=== PATIENT | female | born 1945 | race Caucasian/White ===

== ENCOUNTER 2017-05-15 19:36 | Inpatient (IN) | payer MEDICARE, OTHER ==
--- NOTE | 2017-05-15 20:27 | EDM.PDOC ---
ED HPI GENERAL MEDICAL PROBLEM - General Chief Complaint: Back Pain or Injury Stated Complaint: BACK PAIN Time Seen by Provider: 05/15/17 20:27 Source of Information: Reports: Patient History Limitations: Reports: No Limitations - History of Present Illness INITIAL COMMENTS - FREE TEXT/NARRATIVE: pt arrived with severe pain in the lower back and particularly over the left buttock area. Onset: Gradual Duration: Day(s):, Other (She has had days when she is not moving and she is not eating. ) Location: Reports: Back Associated Symptoms: Reports: Other (pt states she hs become quite dispontant-- She really does not care about anything. 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(s) Left Lower Back Pain Score (Numeric/FACES): 6 - Related Data Allergies Allergy/AdvReac Type Severity Reaction Status Date / Time Beta-Adrenergic Agents Allergy Depression Verified 06/27/13 08:20 corn Allergy Other Verified 05/15/17 20:02 gluten Allergy Other Verified 05/15/17 20:02 prednisone Allergy Cannot Verified 10/01/13 13:57 Remember Sulfa (Sulfonamide Allergy Cannot Verified 06/26/13 07:08 Antibiotics) Remember tomato Allergy Vomiting Verified 05/15/17 20:02 Home Meds: Home Meds Digoxin 0.25 mg PO DAILY 06/26/13 [History] Diltiazem [Diltiazem SR] 120 mg PO DAILY 06/26/13 [History] Furosemide [Lasix] 20 mg PO DAILY 06/26/13 [History] Levothyroxine 100 mcg PO DAILY 06/26/13 [History] Liothyronine [Cytomel] 25 mcg PO DAILY 06/26/13 [History] Potassium 1 tab PO BID 10/01/13 [History] Aspirin [Adult Low Dose Aspirin EC] 81 mg PO BID 05/15/17 [History] Past Medical History HEENT History: Reports: Glaucoma Cardiovascular History: Reports: Afib Musculoskeletal History: Reports: Arthritis, Back Pain, Chronic, Fracture - Infectious Disease History Infectious Disease History: Reports: Chicken Pox, Measles - Past Surgical History Cardiovascular Surgical History: Reports: Other (See Below) Other Cardiovascular Surgeries/Procedures: ablasion Respiratory Surgical History: Reports: Thoracentesis GI Surgical History: Reports: Appendectomy Musculoskeletal Surgical History: Reports: None Social & Family History - Tobacco Use Smoking Status *Q: Never Smoker Second Hand Smoke Exposure: Yes - Caffeine Use Caffeine Use: Reports: Coffee, Tea - Alcohol Use Days Per Week of Alcohol Use: 3 Number of Drinks Per Day: 1 Total Drinks Per Week: 3 - Recreational Drug Use Recreational Drug Use: No ED ROS GENERAL - Review of Systems Review Of Systems: See Below Constitutional: Reports: No Symptoms HEENT: Reports: No Symptoms Respiratory: Reports: No Symptoms Cardiovascular: Reports: No Symptoms Endocrine: Reports: No Symptoms GI/Abdominal: Reports: No Symptoms : Reports: No Symptoms Musculoskeletal: Reports: Other (P has severe low back pain and this extends down over the left buttock) Skin: Reports: No Symptoms Neurological: Reports: No Symptoms Psychiatric: Reports: Agitation, Anxiety ED EXAM,LOWER BACK PAIN/INJURY - Physical Exam Exam: See Below Text/Narrative:: pt arrived with severe low back pain particularly over the left buttock area. She has been in so much pain that she is not taking care of herself. Exam Limited By: No Limitations General Appearance: Alert, Anxious, Severe Distress, Other ( She was given fentyl 100mg iv. ) Ears: Normal TMs Nose: Normal Inspection Throat/Mouth: Normal Inspection Head: Atraumatic Neck: Normal Inspection Respiratory/Chest: No Respiratory Distress Cardiovascular: Irregularly Irregular, Other (pt has had an ablation and an attempt was made to convert her but this was not successful. ) GI/Abdominal: Soft, Non-Tender Back Exam: Paraspinal Tenderness, Vertebral Tenderness, Other ( Pt is very tender over the left buttock. ) Extremities: Normal Inspection Neurological: Alert Course - Vital Signs Last Recorded V/S: Last Vital Signs Temp 37.6 C 05/15/17 22:43 Pulse 94 05/15/17 21:48 Resp 17 05/15/17 22:43 BP 139/95 H 05/15/17 22:43 Pulse Ox 93 L 05/15/17 22:43 - Orders/Labs/Meds Orders: Active Orders 24 hr Category Date Time Status Lumbar Spine Min 4V [CR] Stat Exams 05/15/17 20:24 Taken CULTURE URINE [RM] Stat Lab 05/15/17 22:00 Received Sodium Chloride 0.9% [Normal Saline] 1,000 ml Med 05/15/17 21:45 Active IV ASDIRECTED Medication Orders Sodium Chloride (Normal Saline) 1,000 mls @ 999 mls/hr IV ASDIRECTED KRISTINE Last Admin: 05/15/17 22:01 Dose: 999 mls/hr Labs: Laboratory Tests 05/15/17 05/15/17 05/15/17 Range/Units 20:28 20:34 20:34 WBC 9.6 (4.5-11.0) K/uL RBC 4.00 (3.30-5.50) M/uL Hgb 12.5 (12.0-15.0) g/dL Hct 38.2 (36.0-48.0) % MCV 96 (80-98) fL MCH 31 (27-31) pg MCHC 33 (32-36) % Plt Count 173 (150-400) K/uL Neut % (Auto) 75 H (36-66) % Lymph % (Auto) 11 L (24-44) % [place] % (Auto) 14 H (2-6) % Eos % (Auto) 0 L (2-4) % Baso % (Auto) 0 (0-1) % ESR 47 H (0-25) mm/hr Sodium 138 L (140-148) mmol/L Potassium 3.1 L (3.6-5.2) mmol/L Chloride 100 (100-108) mmol/L Carbon Dioxide 26 (21-32) mmol/L Anion Gap 15.1 H (5.0-14.0) mmol/L BUN 15 (7-18) mg/dL Creatinine 0.5 L (0.6-1.0) mg/dL Est Cr Clr Drug Dosing 82.89 mL/min Estimated GFR (MDRD) > 60 (>60) Glucose 117 H (74-106) mg/dL Calcium 8.9 (8.5-10.1) mg/dL Total Bilirubin 1.4 H (0.2-1.0) mg/dL AST 31 (15-37) U/L ALT 53 (12-78) U/L Alkaline Phosphatase 97 (46-116) U/L Total Protein 7.3 (6.4-8.2) g/dL Albumin 3.3 L (3.4-5.0) g/dL Globulin 4.0 H (2.3-3.5) g/dL Albumin/Globulin Ratio 0.8 L (1.2-2.2) TSH, Ultra Sensitive 3.448 (0.358-3.740) uIU/mL Urine Color Urine Appearance Urine pH (4.5-8.0) Ur Specific [place] (1.008-1.030) Urine Protein (NEGATIVE) mg/dL Urine Glucose (UA) (NEGATIVE) mg/dL Urine Ketones (NEGATIVE) mg/dL Urine Occult Blood (NEGATIVE) Urine Nitrite (NEGATIVE) Urine Bilirubin (NEGATIVE) Urine Urobilinogen (NORMAL) mg/dL Ur Leukocyte Esterase (NEGATIVE) Urine RBC (0-5) Urine WBC (0-5) Ur Epithelial Cells Amorphous Sediment Urine Bacteria Urine Mucus Urine Other 05/15/17 Range/Units 21:33 WBC (4.5-11.0) K/uL RBC (3.30-5.50) M/uL Hgb (12.0-15.0) g/dL Hct (36.0-48.0) % MCV (80-98) fL MCH (27-31) pg MCHC (32-36) % Plt Count (150-400) K/uL Neut % (Auto) (36-66) % Lymph % (Auto) (24-44) % [place] % (Auto) (2-6) % Eos % (Auto) (2-4) % Baso % (Auto) (0-1) % ESR (0-25) mm/hr Sodium (140-148) mmol/L Potassium (3.6-5.2) mmol/L Chloride (100-108) mmol/L Carbon Dioxide (21-32) mmol/L Anion Gap (5.0-14.0) mmol/L BUN (7-18) mg/dL Creatinine (0.6-1.0) mg/dL Est Cr Clr Drug Dosing mL/min Estimated GFR (MDRD) (>60) Glucose (74-106) mg/dL Calcium (8.5-10.1) mg/dL Total Bilirubin (0.2-1.0) mg/dL AST (15-37) U/L ALT (12-78) U/L Alkaline Phosphatase (46-116) U/L Total Protein (6.4-8.2) g/dL Albumin (3.4-5.0) g/dL Globulin (2.3-3.5) g/dL Albumin/Globulin Ratio (1.2-2.2) TSH, Ultra Sensitive (0.358-3.740) uIU/mL Urine Color Urine Appearance Cloudy Urine pH 5.0 (4.5-8.0) Ur Specific [place] 1.025 (1.008-1.030) Urine Protein 30 H (NEGATIVE) mg/dL Urine Glucose (UA) Normal (NEGATIVE) mg/dL Urine Ketones 50 H (NEGATIVE) mg/dL Urine Occult Blood Negative (NEGATIVE) Urine Nitrite Negative (NEGATIVE) Urine Bilirubin Small (NEGATIVE) Urine Urobilinogen 4 (NORMAL) mg/dL Ur Leukocyte Esterase Negative (NEGATIVE) Urine RBC 0-5 (0-5) Urine WBC 10-20 H (0-5) Ur Epithelial Cells Moderate Amorphous Sediment Few Urine Bacteria Not seen Urine Mucus Many Urine Other Meds: Medications Generic Name Dose Route Start Last Admin Trade Name Freq PRN Reason Stop Dose Admin Sodium Chloride 1,000 mls @ 999 mls/hr 05/15/17 21:45 05/15/17 22:01 Normal Saline IV 999 mls/hr ASDIRECTED KRISTINE Administration Discontinued Medications Generic Name Dose Route Start Last Admin Trade Name Freq PRN Reason Stop Dose Admin Potassium Chloride 20 meq 05/15/17 21:44 05/15/17 22:01 Klor-Con M20 PO 05/15/17 21:45 20 meq ONETIME ONE Administration - Re-Assessments/Exams Free Text/Narrative Re-Assessment/Exam: 05/15/17 22:58 lumbar spine xrays were neg for fracture but she did show degenerative disc disease. her sed rate is greater than 40. Her k was 3.1. Departure - Departure Time of Disposition: 23:00 Disposition: Admitted As Inpatient 65 Condition: Fair Clinical Impression: Dehydration, Hypokalemia, Lumbar disc disease with radiculopathy, UTI (urinary tract infection), Depression - Discharge Information Referrals: PCP,None [Primary Care Provider] - Forms: ED Department Discharge Care Plan Goals: admit to Dr ahmadi. - My Orders Last 24 Hours: My Active Orders 05/15/17 20:24 Lumbar Spine Min 4V [CR] Stat 05/15/17 21:45 Sodium Chloride 0.9% [Normal Saline] 1,000 ml IV ASDIRECTED 05/15/17 22:00 CULTURE URINE [RM] Stat - Assessment/Plan Last 24 Hours: My Active Orders 05/15/17 20:24 Lumbar Spine Min 4V [CR] Stat 05/15/17 21:45 Sodium Chloride 0.9% [Normal Saline] 1,000 ml IV ASDIRECTED 05/15/17 22:00 CULTURE URINE [RM] Stat
[2017-05-15] MEDS ORDERED: Potassium Chloride 20 MEQ Tab.ER PO ONE (21:44)
[2017-05-15] MEDS ORDERED: Sodium Chloride 0.9% 1,000 ML IV SCH (21:45)
--- NOTE | 2017-05-16 00:41 | PCM.HP ---
H&P History of Present Illness - General Date of Service: 05/16/17 Admit Problem/Dx: Admission Diagnosis/Problem Admission Diagnosis/Problem Back pain Source of Information: Patient, Provider, RN Notes Reviewed History Limitations: Reports: No Limitations - History of Present Illness Initial Comments - Free Text/Narative: Ms. Conteh is a 72-year-old woman who is admitted to observation status through the emergency department for further management and evaluation of lower back pain. She has a history of chronic low back pain, now over the past 3 days pain has been significantly worse and she notes pain radiating into both lower extremities with standing. Has a persistent pain and difficulty with ambulation she presented to the emergency department for further evaluation. Laboratory studies are unremarkable and there is no evidence of underlying infection. She is neurologically intact and otherwise relatively healthy. Left Lower Back Pain Score (Numeric/FACES): 6 - Related Data Allergies/Adverse Reactions: Allergies Allergy/AdvReac Type Severity Reaction Status Date / Time Beta-Adrenergic Agents Allergy Depression Verified 06/27/13 08:20 corn Allergy Other Verified 05/15/17 20:02 gluten Allergy Other Verified 05/15/17 20:02 prednisone Allergy Cannot Verified 10/01/13 13:57 Remember Sulfa (Sulfonamide Allergy Cannot Verified 06/26/13 07:08 Antibiotics) Remember tomato Allergy Vomiting Verified 05/15/17 20:02 Home Medications: Home Meds Digoxin 0.25 mg PO DAILY 06/26/13 [History] Diltiazem [Diltiazem SR] 120 mg PO DAILY 06/26/13 [History] Furosemide [Lasix] 20 mg PO DAILY 06/26/13 [History] Levothyroxine 100 mcg PO DAILY 06/26/13 [History] Liothyronine [Cytomel] 25 mcg PO DAILY 06/26/13 [History] Potassium 1 tab PO BID 10/01/13 [History] Aspirin [Adult Low Dose Aspirin EC] 81 mg PO BID 05/15/17 [History] Past Medical History HEENT History: Reports: Glaucoma Cardiovascular History: Reports: Afib Musculoskeletal History: Reports: Arthritis, Back Pain, Chronic, Fracture - Infectious Disease History Infectious Disease History: Reports: Chicken Pox, Measles - Past Surgical History Cardiovascular Surgical History: Reports: Other (See Below) Other Cardiovascular Surgeries/Procedures: ablasion Respiratory Surgical History: Reports: Thoracentesis GI Surgical History: Reports: Appendectomy Musculoskeletal Surgical History: Reports: None Social & Family History - Tobacco Use Smoking Status *Q: Never Smoker Second Hand Smoke Exposure: Yes - Caffeine Use Caffeine Use: Reports: Coffee, Tea - Alcohol Use Days Per Week of Alcohol Use: 3 Number of Drinks Per Day: 1 Total Drinks Per Week: 3 - Recreational Drug Use Recreational Drug Use: No H&P Review of Systems - Review of Systems: Review Of Systems: See Below General: Reports: Weakness, Decreased Appetite. Denies: Fever, Chills, Diaphoresis HEENT: Reports: No Symptoms Pulmonary: Reports: No Symptoms Cardiovascular: Reports: No Symptoms Gastrointestinal: Reports: No Symptoms Genitourinary: Reports: No Symptoms Musculoskeletal: Reports: Back Pain, Leg Pain Skin: Reports: No Symptoms Psychiatric: Reports: No Symptoms Neurological: Reports: No Symptoms Hematologic/Lymphatic: Reports: No Symptoms Immunologic: Reports: No Symptoms Exam - Exam Exam: See Below - Vital Signs Vital Signs: Last Vital Signs Temp 99.7 F 05/15/17 22:43 Pulse 94 05/15/17 21:48 Resp 17 05/15/17 22:43 BP 139/95 H 05/15/17 22:43 Pulse Ox 93 L 05/15/17 22:43 Weight: 250 lb - Exam Quality Assessment: Supplemental Oxygen, DVT Prophylaxis General: Alert, Oriented, Cooperative, Moderate Distress HEENT: Conjunctiva Clear, Hearing Intact, Normal Nasal Septum, Posterior Pharynx Clear, Pupils Equal. No: Mucosa Moist & [place] Neck: Supple, Trachea Midline, +2 Carotid Pulse wo Bruit Lungs: Clear to Auscultation, Normal Respiratory Effort Cardiovascular: Regular Rate, Normal S1, Normal S2, Irregular Rhythm. No: Bradycardia, Tachycardia, Systolic Murmur, Diastolic Murmur GI/Abdominal Exam: Normal Bowel Sounds, Soft, Non-Tender, No Distention Back Exam: Normal Inspection, Paraspinal Tenderness, Vertebral Tenderness Extremities: Non-Tender, No Pedal Edema Skin: Warm, Dry, Intact Neurological: Cranial Nerves Intact, Strength Equal Bilateral, Normal Speech, Normal Tone, Sensation Intact. No: Focal Deficit Neuro Extensive - Mental Status: Alert, Oriented x3, Normal Mood/Affect, Normal Cognition, Memory Intact - Patient Data Lab Results Last 24 hrs: Laboratory Results - last 24 hr 05/15/17 05/15/17 05/15/17 Range/Units 20:28 20:34 20:34 WBC 9.6 (4.5-11.0) K/uL RBC 4.00 (3.30-5.50) M/uL Hgb 12.5 (12.0-15.0) g/dL Hct 38.2 (36.0-48.0) % MCV 96 (80-98) fL MCH 31 (27-31) pg MCHC 33 (32-36) % Plt Count 173 (150-400) K/uL Neut % (Auto) 75 H (36-66) % Lymph % (Auto) 11 L (24-44) % [place] % (Auto) 14 H (2-6) % Eos % (Auto) 0 L (2-4) % Baso % (Auto) 0 (0-1) % ESR 47 H (0-25) mm/hr Sodium 138 L (140-148) mmol/L Potassium 3.1 L (3.6-5.2) mmol/L Chloride 100 (100-108) mmol/L Carbon Dioxide 26 (21-32) mmol/L Anion Gap 15.1 H (5.0-14.0) mmol/L BUN 15 (7-18) mg/dL Creatinine 0.5 L (0.6-1.0) mg/dL Est Cr Clr Drug Dosing 82.89 mL/min Estimated GFR (MDRD) > 60 (>60) Glucose 117 H (74-106) mg/dL Calcium 8.9 (8.5-10.1) mg/dL Total Bilirubin 1.4 H (0.2-1.0) mg/dL AST 31 (15-37) U/L ALT 53 (12-78) U/L Alkaline Phosphatase 97 (46-116) U/L Total Protein 7.3 (6.4-8.2) g/dL Albumin 3.3 L (3.4-5.0) g/dL Globulin 4.0 H (2.3-3.5) g/dL Albumin/Globulin Ratio 0.8 L (1.2-2.2) TSH, Ultra Sensitive 3.448 (0.358-3.740) uIU/mL Urine Color Urine Appearance Urine pH (4.5-8.0) Ur Specific [place] (1.008-1.030) Urine Protein (NEGATIVE) mg/dL Urine Glucose (UA) (NEGATIVE) mg/dL Urine Ketones (NEGATIVE) mg/dL Urine Occult Blood (NEGATIVE) Urine Nitrite (NEGATIVE) Urine Bilirubin (NEGATIVE) Urine Urobilinogen (NORMAL) mg/dL Ur Leukocyte Esterase (NEGATIVE) Urine RBC (0-5) Urine WBC (0-5) Ur Epithelial Cells Amorphous Sediment Urine Bacteria Urine Mucus Urine Other 05/15/17 Range/Units 21:33 WBC (4.5-11.0) K/uL RBC (3.30-5.50) M/uL Hgb (12.0-15.0) g/dL Hct (36.0-48.0) % MCV (80-98) fL MCH (27-31) pg MCHC (32-36) % Plt Count (150-400) K/uL Neut % (Auto) (36-66) % Lymph % (Auto) (24-44) % [place] % (Auto) (2-6) % Eos % (Auto) (2-4) % Baso % (Auto) (0-1) % ESR (0-25) mm/hr Sodium (140-148) mmol/L Potassium (3.6-5.2) mmol/L Chloride (100-108) mmol/L Carbon Dioxide (21-32) mmol/L Anion Gap (5.0-14.0) mmol/L BUN (7-18) mg/dL Creatinine (0.6-1.0) mg/dL Est Cr Clr Drug Dosing mL/min Estimated GFR (MDRD) (>60) Glucose (74-106) mg/dL Calcium (8.5-10.1) mg/dL Total Bilirubin (0.2-1.0) mg/dL AST (15-37) U/L ALT (12-78) U/L Alkaline Phosphatase (46-116) U/L Total Protein (6.4-8.2) g/dL Albumin (3.4-5.0) g/dL Globulin (2.3-3.5) g/dL Albumin/Globulin Ratio (1.2-2.2) TSH, Ultra Sensitive (0.358-3.740) uIU/mL Urine Color Urine Appearance Cloudy Urine pH 5.0 (4.5-8.0) Ur Specific [place] 1.025 (1.008-1.030) Urine Protein 30 H (NEGATIVE) mg/dL Urine Glucose (UA) Normal (NEGATIVE) mg/dL Urine Ketones 50 H (NEGATIVE) mg/dL Urine Occult Blood Negative (NEGATIVE) Urine Nitrite Negative (NEGATIVE) Urine Bilirubin Small (NEGATIVE) Urine Urobilinogen 4 (NORMAL) mg/dL Ur Leukocyte Esterase Negative (NEGATIVE) Urine RBC 0-5 (0-5) Urine WBC 10-20 H (0-5) Ur Epithelial Cells Moderate Amorphous Sediment Few Urine Bacteria Not seen Urine Mucus Many Urine Other Result Diagrams: 05/15/17 20:34 05/15/17 20:34 *Q Meaningful Use (ADM) - VTE *Q VTE Criteria *Q: - VTE Risk Assess *Q Each Risk Factor Represents 1 Point: None Total Score 1 Point Risk Factors: 0 Each Risk Factor Represents 2 Points: Age 60 - 74 Years, Morbid Obesity (BMI Greater than 40) Total Score 2 Point Risk Factors: 4 Each Risk Factor Represents 3 Points: None Total Score 3 Point Risk Factors: 0 Each Risk Factor Represents 5 Points: None Total Score 5 Point Risk Factors: 0 Venous Thromboembolism Risk Factor Score *Q: 4 - Stroke *Q Stroke Criteria *Q: - AMI *Q AMI Criteria *Q: Problem List Initiated/Reviewed/Updated: Yes Orders Last 24hrs: Active Orders 24 hr Category Date Time Status Patient Status Manage Transfer [TRANSFER] Routine ADT 05/16/17 00:22 Ordered Lumbar Spine Min 4V [CR] Stat Exams 05/15/17 20:24 Taken CULTURE URINE [RM] Stat Lab 05/15/17 22:00 Received Sodium Chloride 0.9% [Normal Saline] 1,000 ml Med 05/15/17 21:45 Active IV ASDIRECTED Resuscitation Status Routine Resus Stat 05/16/17 00:23 Ordered Medication Orders Sodium Chloride (Normal Saline) 1,000 mls @ 999 mls/hr IV ASDIRECTED KRISTINE Last Admin: 05/15/17 22:01 Dose: 999 mls/hr Assessment/Plan Comment:: ASSESSMENT AND PLAN PROBABLE LUMBAR SPINAL STENOSIS-history would be consistent with this, pain radiating into both lower extremities with standing. History of chronic low back pain significantly worse over the past 72 hours. She is neurologically intact with no weakness or sensory deficits. Denies any precipitating injury. -Observation admission for pain management -MRI of the lumbar spine in a.m. -Decadron 4 mg IV every 6 hours -Pain medication as needed -Consider spine consult with Dr. Crow after MRI results are available CHRONIC ATRIAL FIBRILLATION-controlled ventricular response, currently not anticoagulated. -Continue outpatient medications -Dig level in a.m. HYPOTHYROIDISM -Continue outpatient thyroid replacement medication MAINTENANCE ISSUES -DVT prophylaxis; Lovenox 40 mg subcutaneous daily -GI prophylaxis; not indicated -[place] catheter; not indicated -Nutrition; regular diet -Nicotine dependence; not required CODE STATUS-FULL CODE ADMISSION STATUS-patient will be admitted to inpatient status, expect at least a 2 night hospital stay for evaluation and management of problems as outlined above. At the time of this admission I do not reasonably expected evaluation and management of this problem will require more than a 96 hour hospital stay. DISPOSITION-anticipate discharge to home after the hospital stay. PRIMARY CARE PROVIDER-
[2017-05-16] MEDS ORDERED: oxyCODONE 5 MG Tab PO PRN (01:06)
[2017-05-16] MEDS ORDERED: Enoxaparin 40 MG/0.4 ML Syringe SUBCUT SCH (01:06)
[2017-05-16] MEDS ORDERED: Ondansetron 4 MG/2 ML SDV IV PRN (01:06)
[2017-05-16] MEDS ORDERED: Magnesium Hydroxide 400 MG/5 ML Susp 30 ML Cup PO PRN (01:06)
[2017-05-16] MEDS ORDERED: Polyethylene Glycol 3350 Powder 17 GM Packet PO PRN (01:06)
[2017-05-16] MEDS ORDERED: Acetaminophen 325 MG Tab PO PRN (01:06)
[2017-05-16] MEDS ORDERED: Docusate Sodium 100 MG Cap PO PRN (01:06)
[2017-05-16] MEDS ORDERED: Sodium Chloride 0.9% 10 ML Syringe FLUSH PRN (01:06)
[2017-05-16] MEDS ORDERED: HYDROmorphone 0.5 MG/0.5 ML Syringe IVPUSH PRN (01:06)
[2017-05-16] MEDS: Sodium Chloride 0.9% 1,000 ML IV SCH ×2 (01:18→09:41)
[2017-05-16] MEDS: Dexamethasone 4 MG/ML SDV IVPUSH SCH ×4 (01:42→22:33)
[2017-05-16] MEDS ORDERED: Non-Formulary Medication 1 Each (Potassium [Potassium] 1 TAB) PO SCH (08:00)
[2017-05-16] MEDS: Levothyroxine 100 MCG Tab PO SCH ×2 (08:34→10:16)
--- NOTE | 2017-05-16 08:55 | CR ---
L-spine The lumbar vertebrae demonstrate normal alignment. There are no compression deformities. There is dis c space loss and facet hypertrophy at L4/5 and L5/S1. There is also advanced disc space loss at the L 2/3 level. The SI joints are unremarkable. There is mild degenerative joint space loss of the hips. Impression: 1. Degenerative disc space loss and facet hypertrophy as described above. 2. Bilateral degenerative findings of the hips.
[2017-05-16] MEDS ORDERED: Liothyronine 5 MCG Tab PO SCH ×2 (09:00→23:00)
[2017-05-16] MEDS: Diltiazem 120 MG Cap.CD PO SCH (10:14)
[2017-05-16] MEDS: Furosemide 20 MG Tab PO SCH (10:17)
[2017-05-16] MEDS: Aspirin 81 MG Tab.EC PO SCH ×2 (10:17→22:36)
--- NOTE | 2017-05-16 10:39 | PCM.PN ---
- General Info Date of Service: 05/16/17 Functional Status: Reports: Pain Controlled, Tolerating Diet - Review of Systems General: Reports: Weakness. Denies: Fever Musculoskeletal: Reports: Back Pain Systems Review Comment:: No acute events since admission. Back pain has improved some but has not resolved. Most of her pain is in the left lumbar paraspinal area at this time. No radiation down the legs. She does feel more short of breath than usual and has noted that she has been winded easier in recent weeks. She has not had fevers. Not much in the way of a cough. MRI of the lumbar spine revealed loss of disc height at L2/L3 as well as mild spinal stenosis at L4/L5. Chest x-ray suggested mild diffuse pulmonary edema. - Patient Data Vitals - Most Recent: Last Vital Signs Temp 37.3 C 05/16/17 07:00 Pulse 118 H 05/16/17 10:14 Resp 18 05/16/17 07:00 BP 152/93 H 05/16/17 10:14 Pulse Ox 87 L 05/16/17 07:00 Weight - Most Recent: 99.337 kg I&O - Last 24 Hours: Intake & Output 05/15/17 05/16/17 05/16/17 22:59 06:59 14:59 Output Total 350 200 Balance -350 -200 Lab Results Last 24 Hours: Laboratory Results - last 24 hr 05/16/17 05/16/17 05/16/17 Range/Units 05:07 05:07 05:07 WBC 10.1 (4.5-11.0) K/uL RBC 3.90 (3.30-5.50) M/uL Hgb 12.2 (12.0-15.0) g/dL Hct 37.2 (36.0-48.0) % MCV 95 (80-98) fL MCH 31 (27-31) pg MCHC 33 (32-36) % Plt Count 173 (150-400) K/uL Neut % (Auto) 88 H (36-66) % Lymph % (Auto) 6 L (24-44) % [place] % (Auto) 6 (2-6) % Eos % (Auto) 0 L (2-4) % Baso % (Auto) 0 (0-1) % Sodium 135 L (140-148) mmol/L Potassium 3.3 L (3.6-5.2) mmol/L Chloride 100 (100-108) mmol/L Carbon Dioxide 23 (21-32) mmol/L Anion Gap 15.3 H (5.0-14.0) mmol/L BUN 13 (7-18) mg/dL Creatinine 0.4 L (0.6-1.0) mg/dL Est Cr Clr Drug Dosing 103.62 mL/min Estimated GFR (MDRD) > 60 (>60) Glucose 118 H (74-106) mg/dL Calcium 8.7 (8.5-10.1) mg/dL Magnesium 1.5 L (1.8-2.4) mg/dL Digoxin 0.25 L (0.90-2.00) ng/mL Med Orders - Current: Current Medications Aspirin (Halfprin) 81 mg PO BID [facility] Last Admin: 05/16/17 10:17 Dose: 81 mg Dexamethasone (Dexamethasone) 4 mg IVPUSH Q6H [facility] Last Admin: 05/16/17 08:30 Dose: 4 mg Digoxin (Lanoxin) 250 mcg PO DAILY@1300 [facility] Diltiazem HCl (Cardizem Cd) 120 mg PO DAILY [facility] Last Admin: 05/16/17 10:14 Dose: 120 mg Docusate Sodium (Colace) 100 mg PO BID PRN PRN Reason: Constipation Enoxaparin Sodium (Lovenox) 40 mg SUBCUT BEDTIME [facility] Furosemide (Lasix) 20 mg PO DAILY [facility] Last Admin: 05/16/17 10:17 Dose: 20 mg Hydromorphone HCl (Dilaudid) 0.5 mg IVPUSH Q2H PRN PRN Reason: Pain Last Admin: 05/16/17 07:23 Dose: 0.5 mg Levothyroxine Sodium (Synthroid) 100 mcg PO ACBREAKFAST [facility] Last Admin: 05/16/17 10:16 Dose: 100 mcg Liothyronine Sodium (Cytomel) 25 mcg PO DAILY [facility] Magnesium Hydroxide (Milk Of Magnesia) 30 ml PO Q12H PRN PRN Reason: Constipation Ondansetron HCl (Zofran) 4 mg IV Q4H PRN PRN Reason: Nausea/Vomiting Oxycodone HCl (Oxycodone) 5 mg PO Q4H PRN PRN Reason: Pain (moderate 4-6) Polyethylene Glycol (Miralax) 17 gm PO DAILY PRN PRN Reason: Constipation Sodium Chloride (Saline Flush) 10 ml FLUSH ASDIRECTED PRN PRN Reason: Keep Vein Open Discontinued Medications Acetaminophen (Tylenol) 650 mg PO Q4H PRN PRN Reason: Pain (Mild 1-3)/fever Enoxaparin Sodium (Lovenox) 40 mg SUBCUT DAILY [facility] Last Admin: 05/16/17 01:38 Dose: 40 mg Sodium Chloride (Normal Saline) 1,000 mls @ 999 mls/hr IV ASDIRECTED [facility] Last Admin: 05/15/17 22:01 Dose: 999 mls/hr Sodium Chloride (Normal Saline) 1,000 mls @ 125 mls/hr IV ASDIRECTED [facility] Last Admin: 05/16/17 09:41 Dose: 125 mls/hr Non-Formulary Medication (Potassium [Potassium]) 1 tab PO BIDMEALS [facility] Potassium Chloride (Klor-Con M20) 20 meq PO ONETIME ONE Stop: 05/15/17 21:45 Last Admin: 05/15/17 22:01 Dose: 20 meq - Exam Quality Assessment: Supplemental Oxygen General: Alert, Oriented, Cooperative, No Acute Distress Neck: Supple Lungs: Normal Respiratory Effort, Rales (few right lung base). No: Wheezing Cardiovascular: Regular Rate, Regular Rhythm GI/Abdominal Exam: Soft, No Distention Extremities: No Pedal Edema. No: Increased Warmth Skin: Warm, Dry Neurological: Strength Equal Bilateral Psy/Mental Status: Alert, Normal Affect - Problem List Review Problem List Initiated/Reviewed/Updated: Yes - My Orders Last 24 Hours: My Active Orders 05/16/17 10:32 CXR [Chest 2V] [CR] Routine 05/16/17 10:45 Magnesium Sulfate/Water [Magnesium Sulfate 2 GM in Water 50 ML] 2 gm Premix Bag 1 bag IV Q6H Sodium Chloride 0.9% [Normal Saline] 1,000 ml IV ASDIRECTED 05/16/17 14:00 Acetaminophen [Tylenol Extra Strength] 1,000 mg PO TID 05/17/17 05:00 BASIC METABOLIC PANEL,BMP [CHEM] Timed CBC W/O DIFF,HEMOGRAM [HEME] Timed (1) 05/17/17 09:00 Ferrous Sulfate 325 mg PO DAILY - Plan Plan:: ASSESSMENT AND PLAN PROBABLE LUMBAR SPINAL STENOSIS - acute lower back pain. MRI suggests loss of disc height but no stenosis at L2/L3 as well as mild stenosis at L4/L5 with some facet arthropathy. Pain is better but not resolved with current medications. -Scheduled acetaminophen -Dexamethasone 4 mg IV every 6 hours -Pain medication as needed -Consider spine consult with Dr. Crow after MRI results are available HYPOXIA - chest x-ray suggests pulmonary edema. She has had increased shortness of breath recently but no peripheral edema. Examination reveals a few crackles. -Extra dose of IV furosemide -Echocardiogram tomorrow CHRONIC ATRIAL FIBRILLATION - controlled ventricular response, currently not anticoagulated. -Continue outpatient medications -Dig level in a.m. HYPOTHYROIDISM -Continue outpatient thyroid replacement medication MAINTENANCE ISSUES -DVT prophylaxis; enoxaparin 40 mg subcutaneous daily -GI prophylaxis; not indicated -Cohen catheter; not indicated -Nutrition; regular diet DISPOSITION - anticipate discharge to home after the hospital stay. Hermes Obrien M.D.
[2017-05-16] MEDS ORDERED: Sodium Chloride 0.9% 1,000 ML IV SCH (10:45)
--- NOTE | 2017-05-16 11:12 | MR ---
Lumbar Spine Comp wo Cont HISTORY: Severe low back pain. Radiation to the legs. COMPARISON: None TECHNIQUE: The lumbar spine was imaged in the axial, coronal, and sagittal planes utilizing T1, T2, a nd STIR techniques. FINDINGS: The conus terminates in its anatomic location and is normal in appearance.There is mild ret rolisthesis at the L2/3 level. There is normal alignment elsewhere. No compression deformities are de monstrated. No destructive marrow signal changes are demonstrated. Evaluation of the disc spaces reveals the following findings: L1-L2: There is no spinal or foraminal stenosis. L2-L3: There is advanced disc space narrowing. There is a central disc bulge. There is no spinal or f oraminal stenosis. L3-L4: There is disc desiccation. There is facet hypertrophy. There is no spinal or foraminal stenosi s. L4-L5: There is disc desiccation. There is a mild annular disc bulge. There are hypertrophic facet ch anges. There is mild spinal stenosis. The central canal measures 9 mm. There are hypertrophic facet c hanges. There is moderate bilateral foraminal stenosis. L5-S1: Bilateral facet hypertrophy is demonstrated. There is no spinal or foraminal stenosis. IMPRESSION: 1. There is borderline spinal stenosis at L4/5 as well as moderate bilateral foraminal narrowing. 2. Advanced degenerative disc space loss at the L2/3 level.
--- NOTE | 2017-05-16 11:16 | CR ---
Two-view chest Comparison: April 2010. Findings: There is cardiac enlargement. There is mild vascular engorgement. There are no infiltrates or effusions. Impression: 1. Mild CHF.
[2017-05-16] MEDS ORDERED: Potassium Chloride 20 MEQ Tab.ER PO ONE (12:00)
[2017-05-16] MEDS: Magnesium Sulfate/Water 2 GM in Premix Bag 1 BAG IV SCH ×2 (12:02→17:42)
[2017-05-16] MEDS: Digoxin 125 MCG Tab PO SCH (12:07)
[2017-05-16] MEDS: Acetaminophen 500 MG Tab PO SCH ×2 (14:13→22:37)
[2017-05-16] MEDS ORDERED: Furosemide 20 MG/2 ML VIAL IVPUSH ONE (15:15)
[2017-05-16] MEDS: Enoxaparin 40 MG/0.4 ML Syringe SUBCUT SCH (22:37)
[2017-05-17] MEDS: Dexamethasone 4 MG/ML SDV IVPUSH SCH ×2 (02:23→08:23)
[2017-05-17] MEDS: Liothyronine 5 MCG Tab PO SCH (08:23)
[2017-05-17] MEDS: Levothyroxine 100 MCG Tab PO SCH (08:24)
[2017-05-17] MEDS: Diltiazem 120 MG Cap.CD PO SCH (08:25)
[2017-05-17] MEDS: Aspirin 81 MG Tab.EC PO SCH ×2 (08:26→20:26)
[2017-05-17] MEDS: Furosemide 20 MG Tab PO SCH (08:27)
[2017-05-17] MEDS: Ferrous Sulfate 325 MG Tab PO SCH (08:28)
[2017-05-17] MEDS ORDERED: methylPREDNISolone 4 MG Tab 21 Tab/Dosepak PO SCH (09:30)
[2017-05-17] MEDS ORDERED: Furosemide 40 MG/4 ML VIAL IVPUSH ONE ×2 (09:45→15:00)
[2017-05-17] MEDS: Acetaminophen 500 MG Tab PO SCH ×3 (11:09→20:25)
[2017-05-17] MEDS: Digoxin 125 MCG Tab PO SCH (13:50)
--- NOTE | 2017-05-17 14:22 | PCM.PN ---
- General Info Date of Service: 05/17/17 Functional Status: Reports: Pain Controlled, Ambulating - Review of Systems General: Reports: Weakness Pulmonary: Reports: Shortness of Breath Musculoskeletal: Reports: Back Pain Systems Review Comment:: No acute events overnight. She did require a slight increase in her supplemental oxygen overnight but is back down to 2 L this morning. She does not feel short of breath and does not have a cough. She has not had any fevers. Back pain has continued to improve but still persist. Pain is worse with movement, especially getting into and out of bed. She has been able to increase her ambulation distance and has had less pain doing so. - Patient Data Vitals - Most Recent: Last Vital Signs Temp 36.2 C 05/17/17 13:52 Pulse 88 05/17/17 13:52 Resp 18 05/17/17 13:52 BP 157/78 H 05/17/17 13:52 Pulse Ox 90 L 05/17/17 13:52 Weight - Most Recent: 101.65 kg I&O - Last 24 Hours: Intake & Output 05/16/17 05/17/17 05/17/17 22:59 06:59 14:59 Intake Total 2483 526 1260 Output Total 525 201 900 Balance 1958 325 360 Lab Results Last 24 Hours: Laboratory Results - last 24 hr 05/17/17 05/17/17 Range/Units 04:50 04:50 WBC 6.6 (4.5-11.0) K/uL RBC 3.97 (3.30-5.50) M/uL Hgb 12.4 (12.0-15.0) g/dL Hct 38.2 (36.0-48.0) % MCV 96 (80-98) fL MCH 31 (27-31) pg MCHC 33 (32-36) % Plt Count 211 (150-400) K/uL Sodium 138 L (140-148) mmol/L Potassium 4.4 (3.6-5.2) mmol/L Chloride 103 (100-108) mmol/L Carbon Dioxide 28 (21-32) mmol/L Anion Gap 11.4 (5.0-14.0) mmol/L BUN 21 H D (7-18) mg/dL Creatinine 0.5 L (0.6-1.0) mg/dL Est Cr Clr Drug Dosing 82.86 mL/min Estimated GFR (MDRD) > 60 (>60) Glucose 144 H (74-106) mg/dL Calcium 9.0 (8.5-10.1) mg/dL Med Orders - Current: Current Medications Acetaminophen (Tylenol Extra Strength) 1,000 mg PO TID [facility] Last Admin: 05/17/17 13:50 Dose: 1,000 mg Aspirin (Halfprin) 81 mg PO BID [facility] Last Admin: 05/17/17 08:26 Dose: 81 mg Digoxin (Lanoxin) 250 mcg PO DAILY@1300 [facility] Last Admin: 05/17/17 13:50 Dose: 250 mcg Diltiazem HCl (Cardizem Cd) 120 mg PO DAILY [facility] Last Admin: 05/17/17 08:25 Dose: 120 mg Docusate Sodium (Colace) 100 mg PO BID PRN PRN Reason: Constipation Enoxaparin Sodium (Lovenox) 40 mg SUBCUT BEDTIME [facility] Last Admin: 05/16/17 22:37 Dose: 40 mg Ferrous Sulfate (Ferrous Sulfate) 325 mg PO DAILY [facility] Last Admin: 05/17/17 08:28 Dose: 325 mg Furosemide (Lasix) 20 mg PO DAILY [facility] Last Admin: 05/17/17 08:27 Dose: 20 mg Furosemide (Lasix) 40 mg IVPUSH ONETIME ONE Stop: 05/17/17 15:01 Hydromorphone HCl (Dilaudid) 0.5 mg IVPUSH Q2H PRN PRN Reason: Pain Last Admin: 05/16/17 07:23 Dose: 0.5 mg Levothyroxine Sodium (Synthroid) 100 mcg PO ACBREAKFAST [facility] Last Admin: 05/17/17 08:24 Dose: 100 mcg Liothyronine Sodium (Cytomel) 25 mcg PO MoWeFr@0730 [facility] Last Admin: 05/17/17 08:23 Dose: 25 mcg Liothyronine Sodium (Cytomel) 37.5 mcg PO SuTuThSa@0730 [facility] Magnesium Hydroxide (Milk Of Magnesia) 30 ml PO Q12H PRN PRN Reason: Constipation Last Admin: 05/17/17 08:19 Dose: 30 ml Methylprednisolone (Medrol) 4 mg PO DAILY@1200 [facility] PRN Reason: Protocol Stop: 05/19/17 12:01 Last Admin: 05/17/17 11:10 Dose: 4 mg Methylprednisolone (Medrol) 4 mg PO DAILY@1700 [facility] PRN Reason: Protocol Stop: 05/18/17 17:01 Methylprednisolone (Medrol) 8 mg PO ONETIME ONE PRN Reason: Protocol Stop: 05/17/17 21:01 Methylprednisolone (Medrol) 4 mg PO DAILY@0800 [facility] PRN Reason: Protocol Stop: 05/21/17 08:01 Methylprednisolone (Medrol) 4 mg PO BEDTIME [facility] PRN Reason: Protocol Stop: 05/20/17 21:01 Ondansetron HCl (Zofran) 4 mg IV Q4H PRN PRN Reason: Nausea/Vomiting Oxycodone HCl (Oxycodone) 5 mg PO Q4H PRN PRN Reason: Pain (moderate 4-6) Last Admin: 05/17/17 03:09 Dose: 5 mg Polyethylene Glycol (Miralax) 17 gm PO DAILY PRN PRN Reason: Constipation Sodium Chloride (Saline Flush) 10 ml FLUSH ASDIRECTED PRN PRN Reason: Keep Vein Open Discontinued Medications Acetaminophen (Tylenol) 650 mg PO Q4H PRN PRN Reason: Pain (Mild 1-3)/fever Dexamethasone (Dexamethasone) 4 mg IVPUSH Q6H [facility] Last Admin: 05/17/17 08:23 Dose: 4 mg Enoxaparin Sodium (Lovenox) 40 mg SUBCUT DAILY [facility] Last Admin: 05/16/17 01:38 Dose: 40 mg Furosemide (Lasix) 20 mg IVPUSH ONETIME ONE Stop: 05/16/17 15:16 Last Admin: 05/16/17 15:09 Dose: 20 mg Furosemide (Lasix) 40 mg IVPUSH ONETIME ONE Stop: 05/17/17 09:46 Last Admin: 05/17/17 09:31 Dose: 40 mg Sodium Chloride (Normal Saline) 1,000 mls @ 999 mls/hr IV ASDIRECTED [facility] Last Admin: 05/15/17 22:01 Dose: 999 mls/hr Sodium Chloride (Normal Saline) 1,000 mls @ 125 mls/hr IV ASDIRECTED [facility] Last Admin: 05/16/17 09:41 Dose: 125 mls/hr Magnesium Sulfate 2 gm/ Premix 50 mls @ 25 mls/hr IV Q6H [facility] Stop: 05/16/17 19:59 Last Admin: 05/16/17 17:42 Dose: 25 mls/hr Sodium Chloride (Normal Saline) 1,000 mls @ 25 mls/hr IV ASDIRECTED [facility] Liothyronine Sodium (Cytomel) 25 mcg PO DAILY [facility] Last Admin: 05/16/17 12:39 Dose: Not Given Liothyronine Sodium (Cytomel) 37.5 mcg PO SuTuThSa@0900 [facility] Liothyronine Sodium (Cytomel) 37.5 mcg PO SuTuThSa@0900 [facility] Last Admin: 05/16/17 22:56 Dose: 37.5 mcg Non-Formulary Medication (Potassium [Potassium]) 1 tab PO BIDMEALS [facility] Last Admin: 05/16/17 12:09 Dose: Not Given Potassium Chloride (Klor-Con M20) 20 meq PO ONETIME ONE Stop: 05/15/17 21:45 Last Admin: 05/15/17 22:01 Dose: 20 meq Potassium Chloride (Klor-Con M20) 40 meq PO ONETIME ONE Stop: 05/16/17 12:01 Last Admin: 05/16/17 12:06 Dose: 40 meq - Exam Quality Assessment: Supplemental Oxygen General: Alert, Oriented, Cooperative, No Acute Distress Neck: Supple Lungs: Normal Respiratory Effort, Crackles (few at both bases). No: Wheezing Cardiovascular: Regular Rate, Irregular Rhythm GI/Abdominal Exam: Soft, No Distention Extremities: No Pedal Edema. No: Increased Warmth Skin: Warm, Dry Psy/Mental Status: Alert, Normal Affect - Problem List Review Problem List Initiated/Reviewed/Updated: Yes - My Orders Last 24 Hours: My Active Orders 05/17/17 05:00 Daily Weight [Height and Weight] [RC] 0511 05/17/17 07:30 Liothyronine [Cytomel] 25 mcg PO MoWeFr@0730 05/17/17 09:26 Convert IV to Saline Lock [OM.PC] Routine 05/17/17 12:00 methylPREDNISolone [Medrol] 4 mg PO DAILY@1200 05/17/17 15:00 Furosemide [Lasix] 40 mg IVPUSH ONETIME ONE 05/17/17 17:00 methylPREDNISolone [Medrol] 4 mg PO DAILY@1700 05/17/17 21:00 methylPREDNISolone [Medrol] 8 mg PO ONETIME ONE 05/18/17 08:00 methylPREDNISolone [Medrol] 4 mg PO DAILY@0800 05/18/17 21:00 methylPREDNISolone [Medrol] 4 mg PO BEDTIME - Plan Plan:: ASSESSMENT AND PLAN LUMBAR SPINAL STENOSIS - acute lower back pain. MRI suggests loss of disc height but no stenosis at L2/L3 as well as mild stenosis at L4/L5 with some facet arthropathy. Pain is better but not resolved with current medications. -Scheduled acetaminophen -Medrol Dosepak, start on day 2 -Pain medication as needed HYPOXIA - chest x-ray suggests pulmonary edema. We did not get adequate diuresis with low-dose furosemide yesterday. Formal echocardiogram pending but limited bedside exam suggests adequate cardiac function and no obvious valve issues. -Furosemide 40 mg IV twice today, reassess volume status tomorrow -Echocardiogram tomorrow -Supplement oxygen as needed CHRONIC ATRIAL FIBRILLATION - controlled ventricular response, currently not anticoagulated. -Continue outpatient medications HYPOTHYROIDISM -Continue outpatient thyroid replacement medication MAINTENANCE ISSUES -DVT prophylaxis; enoxaparin 40 mg subcutaneous daily -GI prophylaxis; not indicated -Cohen catheter; not indicated -Nutrition; regular diet DISPOSITION - anticipate discharge to home after the hospital stay. Hermes Obrien M.D.
[2017-05-17] MEDS: Enoxaparin 40 MG/0.4 ML Syringe SUBCUT SCH (20:26)
[2017-05-18] MEDS ORDERED: diphenhydrAMINE 25 MG Cap PO ONE (01:55)
[2017-05-18] MEDS ORDERED: Furosemide 40 MG/4 ML VIAL IVPUSH ONE ×2 (08:30→14:00)
[2017-05-18] MEDS: Liothyronine 5 MCG Tab PO SCH (08:35)
[2017-05-18] MEDS: Levothyroxine 100 MCG Tab PO SCH (08:37)
[2017-05-18] MEDS: Ferrous Sulfate 325 MG Tab PO SCH (08:37)
[2017-05-18] MEDS: Acetaminophen 500 MG Tab PO SCH ×3 (08:38→20:47)
[2017-05-18] MEDS: Aspirin 81 MG Tab.EC PO SCH ×2 (08:39→20:47)
[2017-05-18] MEDS: Diltiazem 120 MG Cap.CD PO SCH (08:43)
[2017-05-18] MEDS ORDERED: Liothyronine 5 MCG Tab PO SCH (09:00)
[2017-05-18] MEDS: Digoxin 125 MCG Tab PO SCH (13:02)
--- NOTE | 2017-05-18 14:01 | PCM.PN ---
- General Info Date of Service: 05/18/17 Functional Status: Reports: Pain Controlled, Tolerating Diet, Ambulating - Review of Systems Pulmonary: Reports: Shortness of Breath Musculoskeletal: Reports: Back Pain Systems Review Comment:: No acute events overnight. Still requiring supplemental O2 but does not feel short of breath. Good response to diuresis yesterday. Supplemental oxygen requirement is stable. No fevers. Back pain is tolerable and she is doing well with current medications. Echocardiogram today showed mildly reduced ejection fraction at about 45% and moderate mitral and tricuspid regurgitation. IVC was dilated and displayed less than 50% collapsibility. - Patient Data Vitals - Most Recent: Last Vital Signs Temp 36.4 C 05/18/17 11:14 Pulse 100 05/18/17 13:02 Resp 20 05/18/17 11:14 BP 147/77 H 05/18/17 11:14 Pulse Ox 92 L 05/18/17 11:14 Weight - Most Recent: 99.382 kg I&O - Last 24 Hours: Intake & Output 05/17/17 05/18/17 05/18/17 22:59 06:59 14:59 Intake Total 920 240 Output Total 800 700 400 Balance 120 -700 -160 Med Orders - Current: Current Medications Acetaminophen (Tylenol Extra Strength) 1,000 mg PO TID [facility] Last Admin: 05/18/17 13:03 Dose: 1,000 mg Aspirin (Halfprin) 81 mg PO BID [facility] Last Admin: 05/18/17 08:39 Dose: 81 mg Digoxin (Lanoxin) 250 mcg PO DAILY@1300 [facility] Last Admin: 05/18/17 13:02 Dose: 250 mcg Diltiazem HCl (Cardizem Cd) 120 mg PO DAILY [facility] Last Admin: 05/18/17 08:43 Dose: 120 mg Docusate Sodium (Colace) 100 mg PO BID PRN PRN Reason: Constipation Enoxaparin Sodium (Lovenox) 40 mg SUBCUT BEDTIME [facility] Last Admin: 05/17/17 20:26 Dose: 40 mg Ferrous Sulfate (Ferrous Sulfate) 325 mg PO DAILY [facility] Last Admin: 05/18/17 08:37 Dose: 325 mg Furosemide (Lasix) 40 mg IVPUSH ONETIME ONE Stop: 05/18/17 14:01 Hydromorphone HCl (Dilaudid) 0.5 mg IVPUSH Q2H PRN PRN Reason: Pain Last Admin: 05/16/17 07:23 Dose: 0.5 mg Levothyroxine Sodium (Synthroid) 100 mcg PO ACBREAKFAST [facility] Last Admin: 05/18/17 08:37 Dose: 100 mcg Liothyronine Sodium (Cytomel) 25 mcg PO MoWeFr@0730 [facility] Last Admin: 05/17/17 08:23 Dose: 25 mcg Liothyronine Sodium (Cytomel) 37.5 mcg PO SuTuThSa@0730 [facility] Last Admin: 05/18/17 08:35 Dose: 37.5 mcg Magnesium Hydroxide (Milk Of Magnesia) 30 ml PO Q12H PRN PRN Reason: Constipation Last Admin: 05/17/17 08:19 Dose: 30 ml Methylprednisolone (Medrol) 4 mg PO DAILY@1200 [facility] PRN Reason: Protocol Stop: 05/19/17 12:01 Last Admin: 05/18/17 13:02 Dose: 4 mg Methylprednisolone (Medrol) 4 mg PO DAILY@1700 [facility] PRN Reason: Protocol Stop: 05/18/17 17:01 Last Admin: 05/17/17 16:32 Dose: 4 mg Methylprednisolone (Medrol) 4 mg PO DAILY@0800 [facility] PRN Reason: Protocol Stop: 05/21/17 08:01 Last Admin: 05/18/17 08:45 Dose: 4 mg Methylprednisolone (Medrol) 4 mg PO BEDTIME [facility] PRN Reason: Protocol Stop: 05/20/17 21:01 Ondansetron HCl (Zofran) 4 mg IV Q4H PRN PRN Reason: Nausea/Vomiting Oxycodone HCl (Oxycodone) 5 mg PO Q4H PRN PRN Reason: Pain (moderate 4-6) Last Admin: 05/17/17 03:09 Dose: 5 mg Polyethylene Glycol (Miralax) 17 gm PO DAILY PRN PRN Reason: Constipation Last Admin: 05/17/17 16:46 Dose: 17 gm Sodium Chloride (Saline Flush) 10 ml FLUSH ASDIRECTED PRN PRN Reason: Keep Vein Open Discontinued Medications Acetaminophen (Tylenol) 650 mg PO Q4H PRN PRN Reason: Pain (Mild 1-3)/fever Dexamethasone (Dexamethasone) 4 mg IVPUSH Q6H [facility] Last Admin: 05/17/17 08:23 Dose: 4 mg Diphenhydramine HCl (Benadryl) 25 mg PO ONETIME ONE Stop: 05/18/17 01:56 Last Admin: 05/18/17 02:49 Dose: 25 mg Enoxaparin Sodium (Lovenox) 40 mg SUBCUT DAILY [facility] Last Admin: 05/16/17 01:38 Dose: 40 mg Furosemide (Lasix) 20 mg PO DAILY [facility] Last Admin: 05/17/17 08:27 Dose: 20 mg Furosemide (Lasix) 20 mg IVPUSH ONETIME ONE Stop: 05/16/17 15:16 Last Admin: 05/16/17 15:09 Dose: 20 mg Furosemide (Lasix) 40 mg IVPUSH ONETIME ONE Stop: 05/17/17 09:46 Last Admin: 05/17/17 09:31 Dose: 40 mg Furosemide (Lasix) 40 mg IVPUSH ONETIME ONE Stop: 05/17/17 15:01 Last Admin: 05/17/17 16:29 Dose: 40 mg Furosemide (Lasix) 40 mg IVPUSH NOW ONE Stop: 05/18/17 08:31 Last Admin: 05/18/17 08:44 Dose: 40 mg Sodium Chloride (Normal Saline) 1,000 mls @ 999 mls/hr IV ASDIRECTED [facility] Last Admin: 05/15/17 22:01 Dose: 999 mls/hr Sodium Chloride (Normal Saline) 1,000 mls @ 125 mls/hr IV ASDIRECTED [facility] Last Admin: 05/16/17 09:41 Dose: 125 mls/hr Magnesium Sulfate 2 gm/ Premix 50 mls @ 25 mls/hr IV Q6H [facility] Stop: 05/16/17 19:59 Last Admin: 05/16/17 17:42 Dose: 25 mls/hr Sodium Chloride (Normal Saline) 1,000 mls @ 25 mls/hr IV ASDIRECTED [facility] Liothyronine Sodium (Cytomel) 25 mcg PO DAILY [facility] Last Admin: 05/16/17 12:39 Dose: Not Given Liothyronine Sodium (Cytomel) 37.5 mcg PO SuTuThSa@0900 [facility] Liothyronine Sodium (Cytomel) 37.5 mcg PO SuTuThSa@0900 [facility] Last Admin: 05/16/17 22:56 Dose: 37.5 mcg Methylprednisolone (Medrol) 8 mg PO ONETIME ONE PRN Reason: Protocol Stop: 05/17/17 21:01 Last Admin: 05/17/17 20:24 Dose: 8 mg Non-Formulary Medication (Potassium [Potassium]) 1 tab PO BIDMEALS [facility] Last Admin: 05/16/17 12:09 Dose: Not Given Potassium Chloride (Klor-Con M20) 20 meq PO ONETIME ONE Stop: 05/15/17 21:45 Last Admin: 05/15/17 22:01 Dose: 20 meq Potassium Chloride (Klor-Con M20) 40 meq PO ONETIME ONE Stop: 05/16/17 12:01 Last Admin: 05/16/17 12:06 Dose: 40 meq - Exam Quality Assessment: Supplemental Oxygen General: Alert, Oriented, Cooperative, No Acute Distress Neck: Supple Lungs: Normal Respiratory Effort, Crackles (Both lung bases). No: Wheezing Cardiovascular: Regular Rate, Irregular Rhythm GI/Abdominal Exam: Soft, No Distention Extremities: No Pedal Edema. No: Increased Warmth Skin: Warm, Dry Psy/Mental Status: Alert, Normal Affect - Problem List Review Problem List Initiated/Reviewed/Updated: Yes - My Orders Last 24 Hours: My Active Orders 05/17/17 17:00 methylPREDNISolone [Medrol] 4 mg PO DAILY@1700 05/18/17 07:00 Echo Comp wo Cont [US] Routine 05/18/17 08:00 methylPREDNISolone [Medrol] 4 mg PO DAILY@0800 05/18/17 14:00 Furosemide [Lasix] 40 mg IVPUSH ONETIME ONE 05/18/17 21:00 methylPREDNISolone [Medrol] 4 mg PO BEDTIME 05/19/17 05:00 BASIC METABOLIC PANEL,BMP [CHEM] Timed - Plan Plan:: ASSESSMENT AND PLAN LUMBAR SPINAL STENOSIS - acute lower back pain. MRI suggests loss of disc height but no stenosis at L2/L3 as well as mild stenosis at L4/L5 with some facet arthropathy. Pain is well-controlled at this time. -Scheduled acetaminophen -Medrol Dosepak -Narcotic Pain medication as needed -Physical therapy SUBACUTE CONGESTIVE HEART FAILURE - chest x-ray suggests pulmonary edema and echocardiogram showed mildly reduced ejection fraction with moderate mitral and tricuspid regurgitation. IVC also suggestive of ongoing volume overload. Complicated by chronic atrial fibrillation. She has both mild systolic and moderate diastolic dysfunction. -Furosemide 40 mg IV twice today, reassess volume status tomorrow -Continue additional medical management -Supplement oxygen as needed CHRONIC ATRIAL FIBRILLATION - controlled ventricular response, currently not anticoagulated. -Continue outpatient medications HYPOTHYROIDISM -Continue outpatient thyroid replacement medication MAINTENANCE ISSUES -DVT prophylaxis; enoxaparin 40 mg subcutaneous daily -GI prophylaxis; not indicated -Cohen catheter; not indicated -Nutrition; regular diet DISPOSITION - anticipate discharge to home after the hospital stay. Hermes Obrien M.D.
[2017-05-18] MEDS: Enoxaparin 40 MG/0.4 ML Syringe SUBCUT SCH (20:49)
[2017-05-19] MEDS ORDERED: diphenhydrAMINE 25 MG Cap PO ONE (00:03)
[2017-05-19] MEDS: Liothyronine 5 MCG Tab PO SCH (07:16)
[2017-05-19] MEDS: Levothyroxine 100 MCG Tab PO SCH (07:16)
[2017-05-19] MEDS: Furosemide 40 MG Tab PO SCH ×2 (08:49→13:54)
[2017-05-19] MEDS: Diltiazem 120 MG Cap.CD PO SCH (08:50)
[2017-05-19] MEDS: Acetaminophen 500 MG Tab PO SCH ×3 (08:51→21:18)
[2017-05-19] MEDS: Aspirin 81 MG Tab.EC PO SCH ×2 (08:51→21:17)
[2017-05-19] MEDS: Ferrous Sulfate 325 MG Tab PO SCH (08:51)
[2017-05-19] MEDS ORDERED: Potassium Chloride 20 MEQ Tab.ER PO ONE (09:30)
--- NOTE | 2017-05-19 10:17 | PCM.PN ---
- General Info Date of Service: 05/19/17 Functional Status: Reports: Pain Controlled, Tolerating Diet - Review of Systems General: Reports: Weakness Pulmonary: Reports: Shortness of Breath Musculoskeletal: Denies: Back Pain Systems Review Comment:: No acute events overnight. Feeling better today with less shortness of breath but does still continue to require supplemental oxygen. Back pain is much better but not completely resolved. She has been ambulating short distances without increase in pain or shortness of breath. She has not been having any fevers. - Patient Data Vitals - Most Recent: Last Vital Signs Temp 35.9 C 05/19/17 07:23 Pulse 69 05/19/17 08:50 Resp 16 05/19/17 07:23 BP 148/74 H 05/19/17 08:50 Pulse Ox 93 L 05/19/17 07:23 Weight - Most Recent: 96.615 kg I&O - Last 24 Hours: Intake & Output 05/18/17 05/19/17 05/19/17 22:59 06:59 14:59 Intake Total 500 Output Total 650 1375 Balance -650 -875 Lab Results Last 24 Hours: Laboratory Results - last 24 hr 05/19/17 Range/Units 04:44 Sodium 140 (140-148) mmol/L Potassium 3.4 L (3.6-5.2) mmol/L Chloride 101 (100-108) mmol/L Carbon Dioxide 33 H (21-32) mmol/L Anion Gap 9.4 (5.0-14.0) mmol/L BUN 20 H (7-18) mg/dL Creatinine 0.6 (0.6-1.0) mg/dL Est Cr Clr Drug Dosing 69.05 mL/min Estimated GFR (MDRD) > 60 (>60) Glucose 139 H (74-106) mg/dL Calcium 9.1 (8.5-10.1) mg/dL Med Orders - Current: Current Medications Acetaminophen (Tylenol Extra Strength) 1,000 mg PO TID [facility] Last Admin: 05/19/17 08:51 Dose: 1,000 mg Aspirin (Halfprin) 81 mg PO BID [facility] Last Admin: 05/19/17 08:51 Dose: 81 mg Digoxin (Lanoxin) 250 mcg PO DAILY@1300 [facility] Last Admin: 05/18/17 13:02 Dose: 250 mcg Diltiazem HCl (Cardizem Cd) 120 mg PO DAILY [facility] Last Admin: 05/19/17 08:50 Dose: 120 mg Docusate Sodium (Colace) 100 mg PO BID PRN PRN Reason: Constipation Enoxaparin Sodium (Lovenox) 40 mg SUBCUT BEDTIME [facility] Last Admin: 05/18/17 20:49 Dose: 40 mg Ferrous Sulfate (Ferrous Sulfate) 325 mg PO DAILY [facility] Last Admin: 05/19/17 08:51 Dose: 325 mg Furosemide (Lasix) 40 mg PO BIDDIURETIC [facility] Last Admin: 05/19/17 08:49 Dose: 40 mg Hydromorphone HCl (Dilaudid) 0.5 mg IVPUSH Q2H PRN PRN Reason: Pain Last Admin: 05/16/17 07:23 Dose: 0.5 mg Levothyroxine Sodium (Synthroid) 100 mcg PO ACBREAKFAST [facility] Last Admin: 05/19/17 07:16 Dose: 100 mcg Liothyronine Sodium (Cytomel) 25 mcg PO MoWeFr@0730 [facility] Last Admin: 05/19/17 07:16 Dose: 25 mcg Liothyronine Sodium (Cytomel) 37.5 mcg PO SuTuThSa@0730 [facility] Last Admin: 05/18/17 08:35 Dose: 37.5 mcg Magnesium Hydroxide (Milk Of Magnesia) 30 ml PO Q12H PRN PRN Reason: Constipation Last Admin: 05/17/17 08:19 Dose: 30 ml Methylprednisolone (Medrol) 4 mg PO DAILY@1200 [facility] PRN Reason: Protocol Stop: 05/19/17 12:01 Last Admin: 05/18/17 13:02 Dose: 4 mg Methylprednisolone (Medrol) 4 mg PO DAILY@0800 [facility] PRN Reason: Protocol Stop: 05/21/17 08:01 Last Admin: 05/19/17 08:50 Dose: 4 mg Methylprednisolone (Medrol) 4 mg PO BEDTIME [facility] PRN Reason: Protocol Stop: 05/20/17 21:01 Last Admin: 05/18/17 20:48 Dose: 4 mg Ondansetron HCl (Zofran) 4 mg IV Q4H PRN PRN Reason: Nausea/Vomiting Oxycodone HCl (Oxycodone) 5 mg PO Q4H PRN PRN Reason: Pain (moderate 4-6) Last Admin: 05/17/17 03:09 Dose: 5 mg Polyethylene Glycol (Miralax) 17 gm PO DAILY PRN PRN Reason: Constipation Last Admin: 05/17/17 16:46 Dose: 17 gm Sodium Chloride (Saline Flush) 10 ml FLUSH ASDIRECTED PRN PRN Reason: Keep Vein Open Discontinued Medications Acetaminophen (Tylenol) 650 mg PO Q4H PRN PRN Reason: Pain (Mild 1-3)/fever Dexamethasone (Dexamethasone) 4 mg IVPUSH Q6H [facility] Last Admin: 05/17/17 08:23 Dose: 4 mg Diphenhydramine HCl (Benadryl) 25 mg PO ONETIME ONE Stop: 05/18/17 01:56 Last Admin: 05/18/17 02:49 Dose: 25 mg Diphenhydramine HCl (Benadryl) 25 mg PO ONETIME ONE Stop: 05/19/17 00:04 Last Admin: 05/19/17 00:13 Dose: 25 mg Enoxaparin Sodium (Lovenox) 40 mg SUBCUT DAILY [facility] Last Admin: 05/16/17 01:38 Dose: 40 mg Furosemide (Lasix) 20 mg PO DAILY [facility] Last Admin: 05/17/17 08:27 Dose: 20 mg Furosemide (Lasix) 20 mg IVPUSH ONETIME ONE Stop: 05/16/17 15:16 Last Admin: 05/16/17 15:09 Dose: 20 mg Furosemide (Lasix) 40 mg IVPUSH ONETIME ONE Stop: 05/17/17 09:46 Last Admin: 05/17/17 09:31 Dose: 40 mg Furosemide (Lasix) 40 mg IVPUSH ONETIME ONE Stop: 05/17/17 15:01 Last Admin: 05/17/17 16:29 Dose: 40 mg Furosemide (Lasix) 40 mg IVPUSH NOW ONE Stop: 05/18/17 08:31 Last Admin: 05/18/17 08:44 Dose: 40 mg Furosemide (Lasix) 40 mg IVPUSH ONETIME ONE Stop: 05/18/17 14:01 Last Admin: 05/18/17 14:41 Dose: 40 mg Sodium Chloride (Normal Saline) 1,000 mls @ 999 mls/hr IV ASDIRECTED [facility] Last Admin: 05/15/17 22:01 Dose: 999 mls/hr Sodium Chloride (Normal Saline) 1,000 mls @ 125 mls/hr IV ASDIRECTED [facility] Last Admin: 05/16/17 09:41 Dose: 125 mls/hr Magnesium Sulfate 2 gm/ Premix 50 mls @ 25 mls/hr IV Q6H [facility] Stop: 05/16/17 19:59 Last Admin: 05/16/17 17:42 Dose: 25 mls/hr Sodium Chloride (Normal Saline) 1,000 mls @ 25 mls/hr IV ASDIRECTED [facility] Liothyronine Sodium (Cytomel) 25 mcg PO DAILY [facility] Last Admin: 05/16/17 12:39 Dose: Not Given Liothyronine Sodium (Cytomel) 37.5 mcg PO SuTuThSa@0900 [facility] Liothyronine Sodium (Cytomel) 37.5 mcg PO SuTuThSa@0900 [facility] Last Admin: 05/16/17 22:56 Dose: 37.5 mcg Methylprednisolone (Medrol) 4 mg PO DAILY@1700 [facility] PRN Reason: Protocol Stop: 05/18/17 17:01 Last Admin: 05/18/17 16:11 Dose: 4 mg Methylprednisolone (Medrol) 8 mg PO ONETIME ONE PRN Reason: Protocol Stop: 05/17/17 21:01 Last Admin: 05/17/17 20:24 Dose: 8 mg Non-Formulary Medication (Potassium [Potassium]) 1 tab PO BIDMEALS [facility] Last Admin: 05/16/17 12:09 Dose: Not Given Potassium Chloride (Klor-Con M20) 20 meq PO ONETIME ONE Stop: 05/15/17 21:45 Last Admin: 05/15/17 22:01 Dose: 20 meq Potassium Chloride (Klor-Con M20) 40 meq PO ONETIME ONE Stop: 05/16/17 12:01 Last Admin: 05/16/17 12:06 Dose: 40 meq Potassium Chloride (Klor-Con M20) 40 meq PO ONETIME ONE Stop: 05/19/17 09:31 - Exam Quality Assessment: Supplemental Oxygen General: Alert, Oriented, Cooperative, No Acute Distress Neck: Supple Lungs: Normal Respiratory Effort, Crackles (few at bases). No: Wheezing Cardiovascular: Regular Rate, Irregular Rhythm GI/Abdominal Exam: Soft, No Distention Extremities: No Pedal Edema. No: Increased Warmth Skin: Warm, Dry Psy/Mental Status: Alert, Normal Affect - Problem List Review Problem List Initiated/Reviewed/Updated: Yes - My Orders Last 24 Hours: My Active Orders 05/18/17 21:00 methylPREDNISolone [Medrol] 4 mg PO BEDTIME 05/19/17 08:00 Furosemide [Lasix] 40 mg PO BIDDIURETIC 05/19/17 10:14 Chest w Cont [CT] Routine 05/20/17 05:00 BASIC METABOLIC PANEL,BMP [CHEM] Timed CBC W/O DIFF,HEMOGRAM [HEME] Timed (1) - Plan Plan:: ASSESSMENT AND PLAN LUMBAR SPINAL STENOSIS - acute lower back pain. MRI suggests loss of disc height but no stenosis at L2/L3 as well as mild stenosis at L4/L5 with some facet arthropathy. Pain is well-controlled at this time. -Scheduled acetaminophen -Complete Medrol Dosepak -Narcotic Pain medication as needed -Physical therapy SUBACUTE CONGESTIVE HEART FAILURE - chest x-ray suggests pulmonary edema and echocardiogram showed mildly reduced ejection fraction with moderate mitral and tricuspid regurgitation. IVC also suggestive of ongoing volume overload. Complicated by chronic atrial fibrillation. She has both mild systolic and moderate diastolic dysfunction. Still evidence for volume overload and hypoxia. -CT pulmonary angiogram to rule out other potential causes of hypoxia such as pulmonary embolism or pneumonia -Furosemide 40 mg twice today, reassess volume status this afternoon and tomorrow -Continue additional medical management -Supplement oxygen as needed CHRONIC ATRIAL FIBRILLATION - controlled ventricular response, currently not anticoagulated. -Continue outpatient medications HYPOTHYROIDISM -Continue outpatient thyroid replacement medication MAINTENANCE ISSUES -DVT prophylaxis; enoxaparin 40 mg subcutaneous daily -GI prophylaxis; not indicated -Cohen catheter; not indicated -Nutrition; regular diet DISPOSITION - anticipate discharge to home after the hospital stay. Hermes Obrien M.D.
[2017-05-19] MEDS ORDERED: Sodium Chloride 0.9% 10 ML Syringe FLUSH ONE (10:28)
[2017-05-19] MEDS ORDERED: Iopamidol 755 Mg/ML 100 ML Bottle IV SCH (10:30)
[2017-05-19] MEDS ORDERED: Sodium Chloride 0.9% 100 ML IV SCH (10:30)
--- NOTE | 2017-05-19 12:00 | CT ---
Ang Chest HISTORY: Asst. Hypoxia. Comparison: Chest x-ray 05/16/2017. Dose: Total DLP 464 FINDINGS: Severe cardiomegaly with small pericardial effusion measuring up to 8 mm in thickness. Tiny pleural effusions measuring only a few millimeters in thickness. There is no evidence for pulmonary embolus there is no dense consolidation. There is some mild prominence to the central pulmonary vesse ls as could represent mild congestive change or be on the basis of pulmonary hypertension. Scans of the upper abdomen are unremarkable. There is some contrast within the inferior vena cava whi ch can be found with some right heart failure. Impression: 1. No evidence for pulmonary embolus. 2. Severe cardiomegaly with very small pericardial effusion. 3. Slight prominence of the central pulmonary vessels likely representing mild congestive change. As well there is some reflux of contrast into the inferior vena cava typical for an element of right hea rt failure.
[2017-05-19] MEDS: Digoxin 125 MCG Tab PO SCH (12:53)
[2017-05-19] MEDS ORDERED: diphenhydrAMINE 25 MG Cap PO PRN (19:36)
[2017-05-19] MEDS: Enoxaparin 40 MG/0.4 ML Syringe SUBCUT SCH (21:17)
[2017-05-20] MEDS ORDERED: Furosemide 40 MG/4 ML VIAL IVPUSH ONE ×2 (06:00→13:00)
[2017-05-20] MEDS: Liothyronine 5 MCG Tab PO SCH (07:12)
[2017-05-20] MEDS: Levothyroxine 100 MCG Tab PO SCH (07:13)
[2017-05-20] MEDS: Ferrous Sulfate 325 MG Tab PO SCH (08:44)
[2017-05-20] MEDS: Acetaminophen 500 MG Tab PO SCH ×3 (08:44→21:01)
[2017-05-20] MEDS: Diltiazem 120 MG Cap.CD PO SCH (08:44)
[2017-05-20] MEDS: Aspirin 81 MG Tab.EC PO SCH ×2 (08:44→21:00)
[2017-05-20] MEDS ORDERED: Potassium Chloride 20 MEQ Tab.ER PO ONE (10:00)
--- NOTE | 2017-05-20 12:40 | PCM.PN ---
- General Info Date of Service: 05/20/17 Functional Status: Reports: Pain Controlled, Tolerating Diet - Review of Systems General: Reports: Weakness Pulmonary: Denies: Shortness of Breath Musculoskeletal: Reports: Back Pain Systems Review Comment:: No acute events overnight. Back pain has been well controlled as long as she does not twist. Still requiring a small quantity of supplemental oxygen but this has been decreasing each day. Excellent diuresis again yesterday. Blood pressures have been stable. Kidney function has been stable. - Patient Data Vitals - Most Recent: Last Vital Signs Temp 36.2 C 05/20/17 11:00 Pulse 78 05/20/17 11:00 Resp 18 05/20/17 11:00 BP 161/75 H 05/20/17 11:00 Pulse Ox 93 L 05/20/17 11:00 Weight - Most Recent: 94.846 kg I&O - Last 24 Hours: Intake & Output 05/19/17 05/20/17 05/20/17 22:59 06:59 14:59 Intake Total 360 980 Output Total 1625 1300 1250 Balance -1265 -1300 -270 Lab Results Last 24 Hours: Laboratory Results - last 24 hr 05/20/17 05/20/17 Range/Units 05:52 05:52 WBC 7.0 (4.5-11.0) K/uL RBC 4.27 (3.30-5.50) M/uL Hgb 13.0 (12.0-15.0) g/dL Hct 40.9 (36.0-48.0) % MCV 96 (80-98) fL MCH 30 (27-31) pg MCHC 32 (32-36) % Plt Count 283 (150-400) K/uL Sodium 139 L (140-148) mmol/L Potassium 3.6 (3.6-5.2) mmol/L Chloride 99 L (100-108) mmol/L Carbon Dioxide 37 H (21-32) mmol/L Anion Gap 6.6 (5.0-14.0) mmol/L BUN 17 (7-18) mg/dL Creatinine 0.7 (0.6-1.0) mg/dL Est Cr Clr Drug Dosing 59.19 mL/min Estimated GFR (MDRD) > 60 (>60) Glucose 132 H (74-106) mg/dL Calcium 9.0 (8.5-10.1) mg/dL Med Orders - Current: Current Medications Acetaminophen (Tylenol Extra Strength) 1,000 mg PO TID [facility] Last Admin: 05/20/17 08:44 Dose: 1,000 mg Aspirin (Halfprin) 81 mg PO BID [facility] Last Admin: 05/20/17 08:44 Dose: 81 mg Digoxin (Lanoxin) 250 mcg PO DAILY@1300 [facility] Last Admin: 05/19/17 12:53 Dose: 250 mcg Diltiazem HCl (Cardizem Cd) 120 mg PO DAILY [facility] Last Admin: 05/20/17 08:44 Dose: 120 mg Diphenhydramine HCl (Benadryl) 25 mg PO BEDTIME PRN PRN Reason: Sleep Last Admin: 05/19/17 21:19 Dose: 25 mg Docusate Sodium (Colace) 100 mg PO BID PRN PRN Reason: Constipation Enoxaparin Sodium (Lovenox) 40 mg SUBCUT BEDTIME [facility] Last Admin: 05/19/17 21:17 Dose: 40 mg Ferrous Sulfate (Ferrous Sulfate) 325 mg PO DAILY [facility] Last Admin: 05/20/17 08:44 Dose: 325 mg Hydromorphone HCl (Dilaudid) 0.5 mg IVPUSH Q2H PRN PRN Reason: Pain Last Admin: 05/16/17 07:23 Dose: 0.5 mg Levothyroxine Sodium (Synthroid) 100 mcg PO ACBREAKFAST [facility] Last Admin: 05/20/17 07:13 Dose: 100 mcg Liothyronine Sodium (Cytomel) 25 mcg PO MoWeFr@0730 [facility] Last Admin: 05/19/17 07:16 Dose: 25 mcg Liothyronine Sodium (Cytomel) 37.5 mcg PO SuTuThSa@0730 [facility] Last Admin: 05/20/17 07:12 Dose: 37.5 mcg Magnesium Hydroxide (Milk Of Magnesia) 30 ml PO Q12H PRN PRN Reason: Constipation Last Admin: 05/17/17 08:19 Dose: 30 ml Methylprednisolone (Medrol) 4 mg PO DAILY@0800 [facility] PRN Reason: Protocol Stop: 05/21/17 08:01 Last Admin: 05/20/17 08:43 Dose: 4 mg Methylprednisolone (Medrol) 4 mg PO BEDTIME [facility] PRN Reason: Protocol Stop: 05/20/17 21:01 Last Admin: 05/19/17 21:18 Dose: 4 mg Ondansetron HCl (Zofran) 4 mg IV Q4H PRN PRN Reason: Nausea/Vomiting Oxycodone HCl (Oxycodone) 5 mg PO Q4H PRN PRN Reason: Pain (moderate 4-6) Last Admin: 05/17/17 03:09 Dose: 5 mg Polyethylene Glycol (Miralax) 17 gm PO DAILY PRN PRN Reason: Constipation Last Admin: 05/17/17 16:46 Dose: 17 gm Sodium Chloride (Saline Flush) 10 ml FLUSH ASDIRECTED PRN PRN Reason: Keep Vein Open Discontinued Medications Acetaminophen (Tylenol) 650 mg PO Q4H PRN PRN Reason: Pain (Mild 1-3)/fever Dexamethasone (Dexamethasone) 4 mg IVPUSH Q6H [facility] Last Admin: 05/17/17 08:23 Dose: 4 mg Diphenhydramine HCl (Benadryl) 25 mg PO ONETIME ONE Stop: 05/18/17 01:56 Last Admin: 05/18/17 02:49 Dose: 25 mg Diphenhydramine HCl (Benadryl) 25 mg PO ONETIME ONE Stop: 05/19/17 00:04 Last Admin: 05/19/17 00:13 Dose: 25 mg Enoxaparin Sodium (Lovenox) 40 mg SUBCUT DAILY [facility] Last Admin: 05/16/17 01:38 Dose: 40 mg Furosemide (Lasix) 20 mg PO DAILY [facility] Last Admin: 05/17/17 08:27 Dose: 20 mg Furosemide (Lasix) 20 mg IVPUSH ONETIME ONE Stop: 05/16/17 15:16 Last Admin: 05/16/17 15:09 Dose: 20 mg Furosemide (Lasix) 40 mg IVPUSH ONETIME ONE Stop: 05/17/17 09:46 Last Admin: 05/17/17 09:31 Dose: 40 mg Furosemide (Lasix) 40 mg IVPUSH ONETIME ONE Stop: 05/17/17 15:01 Last Admin: 05/17/17 16:29 Dose: 40 mg Furosemide (Lasix) 40 mg IVPUSH NOW ONE Stop: 05/18/17 08:31 Last Admin: 05/18/17 08:44 Dose: 40 mg Furosemide (Lasix) 40 mg IVPUSH ONETIME ONE Stop: 05/18/17 14:01 Last Admin: 05/18/17 14:41 Dose: 40 mg Furosemide (Lasix) 40 mg PO BIDDIURETIC [facility] Last Admin: 05/19/17 13:54 Dose: 40 mg Furosemide (Lasix) 40 mg IVPUSH ONETIME ONE Stop: 05/20/17 06:01 Last Admin: 05/20/17 06:10 Dose: 40 mg Sodium Chloride (Normal Saline) 1,000 mls @ 999 mls/hr IV ASDIRECTED [facility] Last Admin: 05/15/17 22:01 Dose: 999 mls/hr Sodium Chloride (Normal Saline) 1,000 mls @ 125 mls/hr IV ASDIRECTED [facility] Last Admin: 05/16/17 09:41 Dose: 125 mls/hr Magnesium Sulfate 2 gm/ Premix 50 mls @ 25 mls/hr IV Q6H [facility] Stop: 05/16/17 19:59 Last Admin: 05/16/17 17:42 Dose: 25 mls/hr Sodium Chloride (Normal Saline) 1,000 mls @ 25 mls/hr IV ASDIRECTED [facility] Sodium Chloride (Normal Saline) 100 mls @ 3.5 mls/sec IV ASDIRECTED [facility] Stop: 05/19/17 11:30 Last Admin: 05/19/17 11:37 Dose: 4 mls/sec Iopamidol (Isovue-370 (76%)) 100 ml IV . DIRECTED [facility] Stop: 05/19/17 11:30 Last Admin: 05/19/17 11:37 Dose: 100 ml Liothyronine Sodium (Cytomel) 25 mcg PO DAILY [facility] Last Admin: 05/16/17 12:39 Dose: Not Given Liothyronine Sodium (Cytomel) 37.5 mcg PO SuTuThSa@0900 [facility] Liothyronine Sodium (Cytomel) 37.5 mcg PO SuTuThSa@0900 [facility] Last Admin: 05/16/17 22:56 Dose: 37.5 mcg Methylprednisolone (Medrol) 4 mg PO DAILY@1200 [facility] PRN Reason: Protocol Stop: 05/19/17 12:01 Last Admin: 05/19/17 12:53 Dose: 4 mg Methylprednisolone (Medrol) 4 mg PO DAILY@1700 [facility] PRN Reason: Protocol Stop: 05/18/17 17:01 Last Admin: 05/18/17 16:11 Dose: 4 mg Methylprednisolone (Medrol) 8 mg PO ONETIME ONE PRN Reason: Protocol Stop: 05/17/17 21:01 Last Admin: 05/17/17 20:24 Dose: 8 mg Non-Formulary Medication (Potassium [Potassium]) 1 tab PO BIDMEALS [facility] Last Admin: 05/16/17 12:09 Dose: Not Given Potassium Chloride (Klor-Con M20) 20 meq PO ONETIME ONE Stop: 05/15/17 21:45 Last Admin: 05/15/17 22:01 Dose: 20 meq Potassium Chloride (Klor-Con M20) 40 meq PO ONETIME ONE Stop: 05/16/17 12:01 Last Admin: 05/16/17 12:06 Dose: 40 meq Potassium Chloride (Klor-Con M20) 40 meq PO ONETIME ONE Stop: 05/19/17 09:31 Last Admin: 05/19/17 10:15 Dose: 40 meq Potassium Chloride (Klor-Con M20) 40 meq PO ONETIME ONE Stop: 05/20/17 10:01 Last Admin: 05/20/17 10:03 Dose: 40 meq Sodium Chloride (Saline Flush) 10 ml FLUSH ONETIME ONE Stop: 05/19/17 10:29 Last Admin: 05/19/17 11:36 Dose: 10 ml - Exam Quality Assessment: Supplemental Oxygen General: Alert, Oriented, Cooperative, No Acute Distress Neck: Supple Lungs: Normal Respiratory Effort GI/Abdominal Exam: Soft, No Distention Psy/Mental Status: Alert, Normal Affect - Problem List Review Problem List Initiated/Reviewed/Updated: Yes - My Orders Last 24 Hours: My Active Orders 05/19/17 19:36 diphenhydrAMINE [Benadryl] 25 mg PO BEDTIME PRN 05/20/17 12:37 Furosemide [Lasix] 40 mg IVPUSH ONETIME ONE 05/20/17 21:00 Gabapentin [Neurontin] 300 mg PO BEDTIME 05/21/17 05:00 BASIC METABOLIC PANEL,BMP [CHEM] Timed 05/21/17 09:00 Furosemide [Lasix] 40 mg PO DAILY - Plan Plan:: ASSESSMENT AND PLAN LUMBAR SPINAL STENOSIS - acute lower back pain. MRI suggests loss of disc height but no stenosis at L2/L3 as well as mild stenosis at L4/L5 with some facet arthropathy. Pain is well-controlled at this time. -Scheduled acetaminophen -Start gabapentin at bedtime -Complete Medrol Dosepak -Narcotic Pain medication as needed -Physical therapy SUBACUTE CONGESTIVE HEART FAILURE - Still mild hypoxia but improving each day. CT yesterday was negative other than cardiomegaly. -IV Furosemide 40 mg twice today -Start oral furosemide tomorrow -Continue additional medical management -Supplement oxygen as needed, wean as able HYPOKALEMIA - improving with supplementation. -Continue supplementation CHRONIC ATRIAL FIBRILLATION - controlled ventricular response, currently not anticoagulated. -Continue outpatient medications HYPOTHYROIDISM -Continue outpatient thyroid replacement medication MAINTENANCE ISSUES -DVT prophylaxis; enoxaparin 40 mg subcutaneous daily -GI prophylaxis; not indicated -Cohen catheter; not indicated -Nutrition; regular diet DISPOSITION - anticipate discharge to home after the hospital stay, hopefully tomorrow if stable overnight Hermes Obrien M.D.
[2017-05-20] MEDS: Digoxin 125 MCG Tab PO SCH (13:49)
[2017-05-20] MEDS ORDERED: Gabapentin 300 MG Cap PO SCH (21:00)
[2017-05-20] MEDS: Enoxaparin 40 MG/0.4 ML Syringe SUBCUT SCH (21:00)
[2017-05-21] MEDS: Liothyronine 5 MCG Tab PO SCH (07:58)
[2017-05-21] MEDS: Levothyroxine 100 MCG Tab PO SCH (07:59)
[2017-05-21] MEDS ORDERED: Furosemide 40 MG Tab PO SCH (09:00)
[2017-05-21] MEDS: Diltiazem 120 MG Cap.CD PO SCH (09:07)
[2017-05-21] MEDS: Aspirin 81 MG Tab.EC PO SCH (09:08)
[2017-05-21] MEDS: Acetaminophen 500 MG Tab PO SCH (09:08)
[2017-05-21] MEDS: Ferrous Sulfate 325 MG Tab PO SCH (09:08)
--- NOTE | 2017-05-21 10:35 | PCM.DCSUM1 ---
Discharge Summary - Hospital Course Brief History: 72-year-old female with history of chronic atrial fibrillation and hypothyroidism who presented with acute lower back pain and was admitted for pain control and further workup. - Discharge Data Discharge Date: 05/21/17 Discharge Disposition: Home, Self-Care 01 Condition: Good - Discharge Diagnosis/Problem(s) (1) Lumbar disc disease with radiculopathy SNOMED Code(s): 481321625 ICD Code: M51.16 - INTERVERTEBRAL DISC DISORDERS W RADICULOPATHY, LUMBAR REGION Status: Acute (2) Systolic CHF with reduced left ventricular function, NYHA class 2 SNOMED Code(s): 720380814 ICD Code: I50.20 - UNSPECIFIED SYSTOLIC (CONGESTIVE) HEART FAILURE Status: Acute (3) Chronic atrial fibrillation SNOMED Code(s): 818508465 ICD Code: I48.2 - CHRONIC ATRIAL FIBRILLATION Status: Chronic (4) Hypothyroidism SNOMED Code(s): 54846531 ICD Code: E03.9 - HYPOTHYROIDISM, UNSPECIFIED Status: Chronic Qualifiers: Hypothyroidism type: unspecified Qualified Code(s): E03.9 - Hypothyroidism , unspecified (5) Sleep apnea SNOMED Code(s): 78574941 ICD Code: G47.30 - SLEEP APNEA, UNSPECIFIED Status: Chronic Qualifiers: Sleep apnea type: unspecified type Qualified Code(s): G47.30 - Sleep apnea , unspecified - Patient Summary/Data Hospital Course: Rose presented to the emergency room with acute lower back pain. Workup in the emergency room was relatively unremarkable but given her significant pain she was admitted for pain control as well as additional workup. Overnight we did have improvement in her pain with IV steroids as well as as needed medications. The morning after admission an MRI was completed which showed mild spinal stenosis at L4/L5 as well as moderate neural foraminal narrowing at this area. She had some arthritic changes at L2/L3. Her back pain showed slow but steady improvement over the course of the first few days using scheduled acetaminophen, IV steroids transition to a Medrol Dosepak as well as as needed oxycodone. She worked with physical therapy and had fairly steady improvement. Her functional status improved dramatically throughout the course of the hospital stay. She has been ambulating safely and effectively but she has continued to use a walker. Hopefully her back will continue to improve. She does have some exercises which she will be performing after she returns home. Epidural steroid injections could be considered if she has additional ongoing difficulties with her back. We did also initiate gabapentin to help with the back pain and had some improvement and relief of the pain with this medication. Also noted during the hospital stay was hypoxia. This was present from the time of emergency room presentation throughout much of the hospital stay. The morning after admission chest x-ray suggested pulmonary edema and IV furosemide was initiated. Over the next couple of days we continued the IV diuresis with not much of a response and oxygenation but improvement in symptoms. We were able to complete an echocardiogram which showed a mild decrease in her left ventricular systolic function as well as mitral and tricuspid regurgitation. At the time of the echocardiogram she had a dilated inferior vena cava without much collapsibility. We continued the IV diuresis over the next couple days with ongoing symptomatic improvement as well as finally improvement in her oxygenation. Her kidney function has remained stable with the diuresis. She has been weaned off supplemental oxygen at this time and is saturating in the low to mid 90s on room air, even after activity. I believe she is safe for outpatient management at this time. She will be going home with an increased dose of furosemide from baseline. She'll be on 40 mg daily. She'll be weighing herself regularly and she may take an extra dose if needed if her weight rises. She would benefit from early clinic follow-up to ensure that her respiratory status remains stable. Referral to the heart failure clinic could be considered. - Patient Instructions Diet: Heart Healthy Diet Activity: As Tolerated Driving: Do Not Drive (if taking pain pills) Showering/Bathing: May Shower Notify Provider of: Fever, Increased Pain, Nausea and/or Vomiting Other/Special Instructions: 1. You were in the hospital for evaluation and management of acute lower back pain caused by spinal stenosis at L4/L5. This was discovered with the MRI of your lower back. We have made significant improvements in your pain utilizing a variety of medications which are listed below. I would recommend continuing the following schedule: --acetaminophen 1000 mg taken 3 times daily (2 extra strength tablets). --gabapentin 300 mg taken once daily at bedtime. --Oxycodone 5 mg taken every 4 hours as needed for severe pain that breaks through the above medications effect. 2. Also during the hospital stay we discovered your oxygen levels were low. I suspect the low oxygen levels were related to mild congestive heart failure with fluid retention. We were able to remove this fluid utilizing furosemide. I recommend that you increase your usual daily dose from 20 mg up to 40 mg. I have sent a new prescription for this medication. You should weigh yourself daily and look for quick jumps and your weight such as a weight gain of 2-3 pounds over the course of 1-2 days. This is likely fluid and should prompt you to take an extra furosemide and notify your primary care doctor. 3. Please continue your other medications as previously prescribed. 4. Please seek medical attention if you develop fever greater than 101, have sudden worsening of your shortness of breath, you develop chest pain or if you have severe back pain that is not controlled with your current medications. - Discharge Plan Prescriptions/Med Rec: Acetaminophen [Tylenol Extra Strength] 1,000 mg PO TID #500 tablet Furosemide [Lasix] 40 mg PO DAILY #30 tablet Gabapentin [Neurontin] 300 mg PO BEDTIME #30 cap oxyCODONE 5 mg PO Q4H PRN #20 tablet PRN Reason: Pain (Severe 7-10) Home Medications: Home Meds Digoxin 0.25 mg PO DAILY 06/26/13 [History] Diltiazem [Cardizem SR] 120 mg PO DAILY 06/26/13 [History] Levothyroxine 100 mcg PO DAILY 06/26/13 [History] Liothyronine [Cytomel] 25 mcg PO DAILY 06/26/13 [History] Potassium 1 tab PO BID 10/01/13 [History] Aspirin [Adult Low Dose Aspirin EC] 81 mg PO BID 05/15/17 [History] Ferrous Sulfate 325 mg PO DAILY 05/16/17 [History] Acetaminophen [Tylenol Extra Strength] 1,000 mg PO TID #500 tablet 05/21/17 [Rx] Furosemide [Lasix] 40 mg PO DAILY #30 tablet 05/21/17 [Rx] Gabapentin [Neurontin] 300 mg PO BEDTIME #30 cap 05/21/17 [Rx] oxyCODONE 5 mg PO Q4H PRN #20 tablet 05/21/17 [Rx] Patient Handouts: Spinal Stenosis, Gabapentin capsules or tablets, Heart Failure, [id number] Referrals: Yudith Engel NP [Advanced RN Practitioner] - (f/u in 1 week - follow-up hospital stay for spinal stenosis with acute back pain and congestive heart failure) - Discharge Summary/Plan Comment DC Time >30 min.: No (25) - Patient Data Vitals - Most Recent: Last Vital Signs Temp 35.7 C 05/21/17 07:46 Pulse 63 05/21/17 09:07 Resp 18 05/21/17 07:46 BP 158/75 H 05/21/17 09:07 Pulse Ox 93 L 05/21/17 07:46 Weight - Most Recent: 92.351 kg I&O - Last 24 hours: Intake & Output 05/20/17 05/21/17 05/21/17 22:59 06:59 14:59 Intake Total 480 500 Output Total 1400 900 500 Balance -920 -400 -500 Lab Results - Last 24 hrs: Laboratory Results - last 24 hr 05/21/17 Range/Units 05:00 Sodium 138 L (140-148) mmol/L Potassium 4.0 (3.6-5.2) mmol/L Chloride 99 L (100-108) mmol/L Carbon Dioxide 37 H (21-32) mmol/L Anion Gap 6.0 (5.0-14.0) mmol/L BUN 18 (7-18) mg/dL Creatinine 0.7 (0.6-1.0) mg/dL Est Cr Clr Drug Dosing 59.19 mL/min Estimated GFR (MDRD) > 60 (>60) Glucose 123 H (74-106) mg/dL Calcium 9.1 (8.5-10.1) mg/dL Med Orders - Current: Current Medications Acetaminophen (Tylenol Extra Strength) 1,000 mg PO TID [facility] Last Admin: 05/21/17 09:08 Dose: 1,000 mg Aspirin (Halfprin) 81 mg PO BID [facility] Last Admin: 05/21/17 09:08 Dose: 81 mg Digoxin (Lanoxin) 250 mcg PO DAILY@1300 [facility] Last Admin: 05/20/17 13:49 Dose: 250 mcg Diltiazem HCl (Cardizem Cd) 120 mg PO DAILY [facility] Last Admin: 05/21/17 09:07 Dose: 120 mg Diphenhydramine HCl (Benadryl) 25 mg PO BEDTIME PRN PRN Reason: Sleep Last Admin: 05/19/17 21:19 Dose: 25 mg Docusate Sodium (Colace) 100 mg PO BID PRN PRN Reason: Constipation Enoxaparin Sodium (Lovenox) 40 mg SUBCUT BEDTIME [facility] Last Admin: 05/20/17 21:00 Dose: 40 mg Ferrous Sulfate (Ferrous Sulfate) 325 mg PO DAILY [facility] Last Admin: 05/21/17 09:08 Dose: 325 mg Furosemide (Lasix) 40 mg PO DAILY [facility] Last Admin: 05/21/17 09:08 Dose: 40 mg Gabapentin (Neurontin) 300 mg PO BEDTIME [facility] Last Admin: 05/20/17 21:01 Dose: 300 mg Hydromorphone HCl (Dilaudid) 0.5 mg IVPUSH Q2H PRN PRN Reason: Pain Last Admin: 05/16/17 07:23 Dose: 0.5 mg Levothyroxine Sodium (Synthroid) 100 mcg PO ACBREAKFAST [facility] Last Admin: 05/21/17 07:59 Dose: 100 mcg Liothyronine Sodium (Cytomel) 25 mcg PO MoWeFr@0730 [facility] Last Admin: 05/19/17 07:16 Dose: 25 mcg Liothyronine Sodium (Cytomel) 37.5 mcg PO SuTuThSa@0730 [facility] Last Admin: 05/21/17 07:58 Dose: 37.5 mcg Magnesium Hydroxide (Milk Of Magnesia) 30 ml PO Q12H PRN PRN Reason: Constipation Last Admin: 05/17/17 08:19 Dose: 30 ml Ondansetron HCl (Zofran) 4 mg IV Q4H PRN PRN Reason: Nausea/Vomiting Oxycodone HCl (Oxycodone) 5 mg PO Q4H PRN PRN Reason: Pain (moderate 4-6) Last Admin: 05/17/17 03:09 Dose: 5 mg Polyethylene Glycol (Miralax) 17 gm PO DAILY PRN PRN Reason: Constipation Last Admin: 05/17/17 16:46 Dose: 17 gm Sodium Chloride (Saline Flush) 10 ml FLUSH ASDIRECTED PRN PRN Reason: Keep Vein Open Discontinued Medications Acetaminophen (Tylenol) 650 mg PO Q4H PRN PRN Reason: Pain (Mild 1-3)/fever Dexamethasone (Dexamethasone) 4 mg IVPUSH Q6H [facility] Last Admin: 05/17/17 08:23 Dose: 4 mg Diphenhydramine HCl (Benadryl) 25 mg PO ONETIME ONE Stop: 05/18/17 01:56 Last Admin: 05/18/17 02:49 Dose: 25 mg Diphenhydramine HCl (Benadryl) 25 mg PO ONETIME ONE Stop: 05/19/17 00:04 Last Admin: 05/19/17 00:13 Dose: 25 mg Enoxaparin Sodium (Lovenox) 40 mg SUBCUT DAILY [facility] Last Admin: 05/16/17 01:38 Dose: 40 mg Furosemide (Lasix) 20 mg PO DAILY [facility] Last Admin: 05/17/17 08:27 Dose: 20 mg Furosemide (Lasix) 20 mg IVPUSH ONETIME ONE Stop: 05/16/17 15:16 Last Admin: 05/16/17 15:09 Dose: 20 mg Furosemide (Lasix) 40 mg IVPUSH ONETIME ONE Stop: 05/17/17 09:46 Last Admin: 05/17/17 09:31 Dose: 40 mg Furosemide (Lasix) 40 mg IVPUSH ONETIME ONE Stop: 05/17/17 15:01 Last Admin: 05/17/17 16:29 Dose: 40 mg Furosemide (Lasix) 40 mg IVPUSH NOW ONE Stop: 05/18/17 08:31 Last Admin: 05/18/17 08:44 Dose: 40 mg Furosemide (Lasix) 40 mg IVPUSH ONETIME ONE Stop: 05/18/17 14:01 Last Admin: 05/18/17 14:41 Dose: 40 mg Furosemide (Lasix) 40 mg PO BIDDIURETIC [facility] Last Admin: 05/19/17 13:54 Dose: 40 mg Furosemide (Lasix) 40 mg IVPUSH ONETIME ONE Stop: 05/20/17 06:01 Last Admin: 05/20/17 06:10 Dose: 40 mg Furosemide (Lasix) 40 mg IVPUSH ONETIME ONE Stop: 05/20/17 13:01 Last Admin: 05/20/17 13:47 Dose: 40 mg Sodium Chloride (Normal Saline) 1,000 mls @ 999 mls/hr IV ASDIRECTED [facility] Last Admin: 05/15/17 22:01 Dose: 999 mls/hr Sodium Chloride (Normal Saline) 1,000 mls @ 125 mls/hr IV ASDIRECTED [facility] Last Admin: 05/16/17 09:41 Dose: 125 mls/hr Magnesium Sulfate 2 gm/ Premix 50 mls @ 25 mls/hr IV Q6H [facility] Stop: 05/16/17 19:59 Last Admin: 05/16/17 17:42 Dose: 25 mls/hr Sodium Chloride (Normal Saline) 1,000 mls @ 25 mls/hr IV ASDIRECTED [facility] Sodium Chloride (Normal Saline) 100 mls @ 3.5 mls/sec IV ASDIRECTED [facility] Stop: 05/19/17 11:30 Last Admin: 05/19/17 11:37 Dose: 4 mls/sec Iopamidol (Isovue-370 (76%)) 100 ml IV . DIRECTED [facility] Stop: 05/19/17 11:30 Last Admin: 05/19/17 11:37 Dose: 100 ml Liothyronine Sodium (Cytomel) 25 mcg PO DAILY [facility] Last Admin: 05/16/17 12:39 Dose: Not Given Liothyronine Sodium (Cytomel) 37.5 mcg PO SuTuThSa@0900 [facility] Liothyronine Sodium (Cytomel) 37.5 mcg PO SuTuThSa@0900 [facility] Last Admin: 05/16/17 22:56 Dose: 37.5 mcg Methylprednisolone (Medrol) 4 mg PO DAILY@1200 [facility] PRN Reason: Protocol Stop: 05/19/17 12:01 Last Admin: 05/19/17 12:53 Dose: 4 mg Methylprednisolone (Medrol) 4 mg PO DAILY@1700 [facility] PRN Reason: Protocol Stop: 05/18/17 17:01 Last Admin: 05/18/17 16:11 Dose: 4 mg Methylprednisolone (Medrol) 8 mg PO ONETIME ONE PRN Reason: Protocol Stop: 05/17/17 21:01 Last Admin: 05/17/17 20:24 Dose: 8 mg Methylprednisolone (Medrol) 4 mg PO DAILY@0800 [facility] PRN Reason: Protocol Stop: 05/21/17 08:01 Last Admin: 05/21/17 08:00 Dose: 4 mg Methylprednisolone (Medrol) 4 mg PO BEDTIME [facility] PRN Reason: Protocol Stop: 05/20/17 21:01 Last Admin: 05/20/17 21:00 Dose: 4 mg Non-Formulary Medication (Potassium [Potassium]) 1 tab PO BIDMEALS [facility] Last Admin: 05/16/17 12:09 Dose: Not Given Potassium Chloride (Klor-Con M20) 20 meq PO ONETIME ONE Stop: 05/15/17 21:45 Last Admin: 05/15/17 22:01 Dose: 20 meq Potassium Chloride (Klor-Con M20) 40 meq PO ONETIME ONE Stop: 05/16/17 12:01 Last Admin: 05/16/17 12:06 Dose: 40 meq Potassium Chloride (Klor-Con M20) 40 meq PO ONETIME ONE Stop: 05/19/17 09:31 Last Admin: 05/19/17 10:15 Dose: 40 meq Potassium Chloride (Klor-Con M20) 40 meq PO ONETIME ONE Stop: 05/20/17 10:01 Last Admin: 05/20/17 10:03 Dose: 40 meq Sodium Chloride (Saline Flush) 10 ml FLUSH ONETIME ONE Stop: 05/19/17 10:29 Last Admin: 05/19/17 11:36 Dose: 10 ml - Exam Quality Assessment: Denies: Supplemental Oxygen General: Reports: Alert, Oriented, Cooperative, No Acute Distress Neck: Reports: Supple Lungs: Reports: Normal Respiratory Effort GI/Abdominal Exam: Soft, No Distention Psy/Mental Status: Reports: Alert, Normal Affect *Q Meaningful Use (DIS) - VTE *Q VTE Criteria *Q: - Stroke *Q Stroke Criteria *Q: - AMI *Q AMI Criteria *Q:
[2017-05-21 10:59] VITALS: BP 154/61
== END 2017-05-21 13:00 | disposition home or self-care (01) | DRG 551 ==
LOC: JP.ED 19:36 → JP.MS 05-16 00:22 → OBSVTOIN 05-16 15:34
PROVIDERS: ADMIT Hospitalist; ATTEND Internal Medicine
DX: M51.16 Intervertebral disc disorders with radiculopathy, lumbar region (principal); I50.41 Acute combined systolic (congestive) and diastolic (congestive) heart failure; E03.9 Hypothyroidism, unspecified; R09.02 Hypoxemia; G47.30 Sleep apnea, unspecified; E86.0 Dehydration; E87.6 Hypokalemia; I48.2 Chronic atrial fibrillation; M54.9 Dorsalgia, unspecified; G89.29 Other chronic pain; F32.9 Major depressive disorder, single episode, unspecified; R26.2 Difficulty in walking, not elsewhere classified; I34.0 Nonrheumatic mitral (valve) insufficiency; I36.1 Nonrheumatic tricuspid (valve) insufficiency; Z79.82 Long term (current) use of aspirin; Z91.018 Allergy to other foods; Z88.2 Allergy status to sulfonamides; Z88.8 Allergy status to other drugs, medicaments and biological substances
CPT/HCPCS: 36415 ×2; 71020 ×2; 72110 ×2; 72148 ×2; 80048; 80053; 80162; 81001; 83735; 84443; 85025 ×2; 85651; 87086; 96360; 97110; 97162; 97530 ×2; 97535; 99285; A9270 ×8; J1100 ×3; J1170; J1650; J1940; J3475; J7040 ×3; 71275; 71275-26; 85027; 93306; 99219; J7030; J7050; Q9967